=== PATIENT | female | born 1960 | race Caucasian/White ===

== ENCOUNTER → 2016-07-06 | Outpatient (REF) | payer MEDICARE, MEDICAID ==
[2016-07-08 00:06] LABS: BENZODIAZEPINES, URINE SCREEN Negative ng/mL (Cutoff=200); METHADONE, URINE SCREEN Negative ng/mL (Cutoff=300); pH, URINE 5.8 (4.5-8.9)
== END ==
LOC: M SFHCPLAZ 11:34
PROVIDERS: ATTEND Family Medicine
DX: R32 Unspecified urinary incontinence (principal); Z51.81 Encounter for therapeutic drug level monitoring; Z79.899 Other long term (current) drug therapy
CPT/HCPCS: 80307; 81001; 87086; G0463

== ENCOUNTER → 2016-08-23 | Outpatient (REF) | payer MEDICARE ==
[2016-08-23 14:02] LABS: ALBUMIN 3.6 GM/DL (3.2-5.2); ALBUMIN/GLOBULIN RATIO 1.06 (1.00-1.93); ALKALINE PHOSPHATASE 146 U/L (45-117); ALT/SGPT 44 U/L (12-78); ANION GAP 9 MEQ/L (8-16); AST/SGOT 23 U/L (15-37); BILIRUBIN,TOTAL 0.3 MG/DL (0.2-1.0); BLOOD UREA NITROGEN 20 MG/DL (7-18); CALCIUM LEVEL 9.2 MG/DL (8.5-10.1); CARBON DIOXIDE LEVEL 29 MEQ/L (21-32); CHLORIDE LEVEL 103 MEQ/L (98-107); CHOLESTEROL LEVEL 314 MG/DL (<200); CREATININE FOR GFR 0.84 MG/DL (0.55-1.02); GLOMERULAR FILTRATION RATE > 60.0 (>51); GLUCOSE, FASTING 293 MG/DL (70-105); POTASSIUM SERUM 4.4 MEQ/L (3.5-5.1); SODIUM LEVEL 141 MEQ/L (136-145); TRIGLYCERIDES LEVEL 358 MG/DL (<150)
== END ==
LOC: M SFHCPLAZ 11:25
PROVIDERS: ATTEND Family Medicine
DX: E11.42 Type 2 diabetes mellitus with diabetic polyneuropathy (principal)
CPT/HCPCS: 80053; 80061; 82043; 83036; G0463

== ENCOUNTER → 2016-10-01 | Outpatient (REF) | payer MEDICARE | LOC: M SFHCPLAZ 16:59 | PROVIDERS: ATTEND Family Medicine | DX: L98.9 Disorder of the skin and subcutaneous tissue, unspecified (principal); F31.9 Bipolar disorder, unspecified; F41.9 Anxiety disorder, unspecified; F60.3 Borderline personality disorder; Z65.8 Other specified problems related to psychosocial circumstances ==

== ENCOUNTER → 2016-10-04 | Outpatient (CLI) | payer MEDICARE ==
--- NOTE | 2016-10-04 11:32 | REP ---
Clinical: Spondylosis. Technique: AP, lateral, bilateral oblique, flexion/extension and open-mouth views of the cervical spine. Findings: Straightening of normal lordosis is nonspecific. There is no evidence for subluxation or fracture / compression injury. Advanced degenerative changes include osteophytosis, endplate sclerosis/disc space narrowing and hypertrophic changes to the uncovertebral processes causing associated foraminal narrowing. Findings are most notably involving the C4-5, C5-6, C6-7 levels. Open mouth view demonstrates normal C1-C2 articulation and odontoid process. Impression: Advanced multilevel degenerative changes. Signed by Toney Miranda MD 10/04/2016 11:23 A
--- NOTE | 2016-10-04 11:35 | REP ---
Clinical: Spondylosis. Technique: AP, lateral, bilateral oblique, flexion/extension and coned-down views of the lumbosacral spine. Findings: Advanced multilevel degenerative disc osteophyte complexes are noted. Findings include osteophytosis, endplate sclerosis/irregularity and disc space narrowing along with hypertrophic facet changes and are most pronounced at the L5-S1, L1-2, and L3-4 levels. Alignment is maintained. There is no acute fracture / compression injury or subluxation. Foraminal narrowing at the L5-S1 level is suggested. Impression: Advanced multilevel degenerative changes. No acute fracture / compression injury or subluxation. Signed by Toney Miranda MD 10/04/2016 11:26 A
== END ==
LOC: M SMT 10:31
PROVIDERS: ATTEND Neurological Surgery
DX: M47.892 Other spondylosis, cervical region (principal); M50.30 Other cervical disc degeneration, unspecified cervical region; M47.896 Other spondylosis, lumbar region

== ENCOUNTER → 2016-10-17 | Outpatient (REF) | payer MEDICARE | LOC: M SFHCPLAZ 13:12 | PROVIDERS: ATTEND Family Medicine | DX: J02.9 Acute pharyngitis, unspecified (principal) ==

== ENCOUNTER → 2016-10-19 | Outpatient (REF) | payer MEDICARE | LOC: M LAB REF 16:36 | PROVIDERS: ATTEND Neurological Surgery | DX: Z01.818 Encounter for other preprocedural examination (principal) ==

== ENCOUNTER → 2016-12-14 | Outpatient (REF) | payer MEDICARE, MEDICAID ==
[2016-12-14 13:13] LABS: ANION GAP 9 MEQ/L (8-16); BLOOD UREA NITROGEN 18 MG/DL (7-18); CALCIUM LEVEL 9.3 MG/DL (8.5-10.1); CARBON DIOXIDE LEVEL 29 MEQ/L (21-32); CHLORIDE LEVEL 104 MEQ/L (98-107); CREATININE FOR GFR 0.72 MG/DL (0.55-1.02); GLOMERULAR FILTRATION RATE > 60.0 (>51); GLUCOSE, FASTING 169 MG/DL (70-105); POTASSIUM SERUM 4.2 MEQ/L (3.5-5.1); SODIUM LEVEL 142 MEQ/L (136-145)
== END ==
LOC: M SFHCPLAZ 10:31
PROVIDERS: ATTEND Family Medicine
DX: E11.42 Type 2 diabetes mellitus with diabetic polyneuropathy (principal); I10 Essential (primary) hypertension; F41.9 Anxiety disorder, unspecified; F31.9 Bipolar disorder, unspecified; F60.3 Borderline personality disorder; Z65.8 Other specified problems related to psychosocial circumstances
CPT/HCPCS: 36415; 80048; 83036; 90834; G0463

== ENCOUNTER → 2017-01-02 | Outpatient (CLI) | payer MEDICARE ==
--- NOTE | 2017-01-02 12:28 | REPMRS ---
Patient History The patient states she had a clinical breast exam in 12/2016. Family history of breast cancer in mother at age 76 and ovarian cancer in niece at age 26. Digital Woman Screen Mammo: January 02, 2017 - Exam #: [id number] Bilateral CC and MLO view(s) were taken. Technologist: Thalia Shelley, Technologist FINDINGS: The breast tissue is heterogeneously dense. This may lower the sensitivity of mammography. There is no evidence of cancer on this mammogram. ASSESSMENT: BI-RADS/ACR category 2 mammogram. Benign finding(s). Recommendation Routine screening mammogram of both breasts in 1 year (for women over age 40). This mammogram was interpreted with the aid of an FDA-approved computer-aided dectection system. Electronically Signed By: Jerrell Barreto MD 01/02/17 2662
== END ==
LOC: M WHC 11:27
PROVIDERS: ATTEND Family Medicine
DX: Z12.31 Encounter for screening mammogram for malignant neoplasm of breast (principal); Z80.3 Family history of malignant neoplasm of breast; R92.8 Other abnormal and inconclusive findings on diagnostic imaging of breast

== ENCOUNTER → 2017-01-02 | Outpatient (CLI) | payer MEDICARE, MEDICAID ==
--- NOTE | 2017-01-02 14:59 | REP ---
CAROTID ULTRASOUND: Real-time ultrasound evaluation and duplex Doppler interrogation of the extracranial carotid vasculature is performed. There is mild plaquing and narrowing in both carotid bulbs extending into the internal and external carotid arteries. Luminal narrowing is less than 50%. There is no evidence of hemodynamically significant stenosis of either internal carotid artery. Normal flow velocities are seen. The vertebral arteries demonstrate normal direction of flow. RIGHT LEFT Peak systolic velocity ICA 62.8 cm/s 64.3 cm/s End diastolic velocity ICA 28.1 cm/s 20.9 cm/s Peak systolic velocity CCA 77.4 cm/s 93.9 cm/s Peak systolic velocity ECA 76.2 cm/s 70.7 cm/s ICA/CCA ratio 0.81 0.68 IMPRESSION: Bilateral luminal narrowing of the internal carotid arteries less than 50%. No evidence of hemodynamically significant stenosis. Incidental note is made of a few small nodules bilaterally in the thyroid, with calcifications in the right thyroid as well. Signed by Jerrell Barreto MD 01/02/2017 02:51 P
== END ==
LOC: M RAD 13:24
PROVIDERS: ATTEND Family Medicine
DX: I65.22 Occlusion and stenosis of left carotid artery (principal); Z12.31 Encounter for screening mammogram for malignant neoplasm of breast; Z80.3 Family history of malignant neoplasm of breast; R92.8 Other abnormal and inconclusive findings on diagnostic imaging of breast
CPT/HCPCS: 93880; G0202

== ENCOUNTER → 2017-02-01 | Outpatient (REF) | payer MEDICARE ==
[2017-02-01 16:25] LABS: FREE T4 0.96 NG/DL (0.76-1.46)
== END ==
LOC: M SFHCPLAZ 15:05
PROVIDERS: ATTEND Family Medicine
DX: E04.1 Nontoxic single thyroid nodule (principal)
CPT/HCPCS: 84439; 84443; G0463

== ENCOUNTER → 2017-02-06 | Outpatient (CLI) | payer MEDICARE, MEDICAID ==
--- NOTE | 2017-02-06 15:25 | REP ---
HISTORY: Thyroid nodule. COMPARISON: None. The right lobe of the thyroid gland measures 5.6 x 3.1 x 1.9 cm and the left lobe measures 5.1 x 1.9 x 1.9 cm. The cyst measures 6 mm. In the right lobe of the thyroid gland there is an 8 mm size solid nodule with echogenic foci within it consistent with calcific deposition. In the left lobe of the thyroid gland there are three nodules, two are too small for ultrasonographic characterization and measure a millimeter or less. The largest measures 6 mm in its greatest dimension and is solid. IMPRESSION: Findings as described above. Signed by Igor Reagan DO 02/06/2017 03:46 P
== END ==
LOC: M RAD 11:09
PROVIDERS: ATTEND Family Medicine
DX: E04.9 Nontoxic goiter, unspecified (principal)

== ENCOUNTER 2017-06-18 14:46 | Emergency (ER) | payer MEDICARE, MEDICAID ==
[2017-06-18] MEDS: CYCLOBENZAPRINE 10 MG TAB PO (18:29)
[2017-06-18] MEDS: PERCOCET 5MG/325MG TAB PO (18:29)
[2017-06-18] MEDS: KETOROLAC 60 MG/2 ML VIAL (J1885) IM (18:30)
== END 2017-06-18 21:07 | disposition home or self-care (01) ==
LOC: M ED 14:46
DX: M51.36 Other intervertebral disc degeneration, lumbar region (principal); I10 Essential (primary) hypertension; F41.9 Anxiety disorder, unspecified; E78.5 Hyperlipidemia, unspecified; M21.371 Foot drop, right foot; Z79.899 Other long term (current) drug therapy; Z79.84 Long term (current) use of oral hypoglycemic drugs; Z88.5 Allergy status to narcotic agent
CPT/HCPCS: J1885

== ENCOUNTER → 2017-06-24 | Outpatient (REF) | payer MEDICARE ==
[2017-06-24 18:55] LABS: ANION GAP 7 MEQ/L (8-16); BLOOD UREA NITROGEN 18 MG/DL (7-18); CALCIUM LEVEL 9.2 MG/DL (8.5-10.1); CARBON DIOXIDE LEVEL 32 MEQ/L (21-32); CHLORIDE LEVEL 100 MEQ/L (98-107); CREATININE FOR GFR 0.81 MG/DL (0.55-1.30); GLOMERULAR FILTRATION RATE > 60.0 (>51); GLUCOSE, FASTING 232 MG/DL (70-100); POTASSIUM SERUM 4.3 MEQ/L (3.5-5.1); SODIUM LEVEL 139 MEQ/L (136-145)
[2017-06-24 20:32] LABS: ESTIMATED AVERAGE GLUCOSE 235 MG/DL (60-110); HEMOGLOBIN A1c 9.8 %
== END ==
LOC: M SFHCPLAZ 16:02
DX: E11.42 Type 2 diabetes mellitus with diabetic polyneuropathy (principal); I10 Essential (primary) hypertension
CPT/HCPCS: 83036

== ENCOUNTER → 2017-09-12 | Outpatient (CLI) | payer MEDICARE | LOC: M WHC 11:19 | DX: E04.1 Nontoxic single thyroid nodule (principal); F41.0 Panic disorder [episodic paroxysmal anxiety]; F60.2 Antisocial personality disorder; F31.9 Bipolar disorder, unspecified; G47.00 Insomnia, unspecified | CPT/HCPCS: 76536 ==

== ENCOUNTER 2017-09-20 18:34 | Emergency (ER) | payer MEDICARE ==
[2017-09-20] MEDS: ONDANSETRON 4MG/2ML VIAL (J2405) IV (19:36)
[2017-09-20] MEDS: NS 1,000 ML IV (19:36)
[2017-09-20] MEDS: MORPHINE 4 MG/ML 1ML VIAL/SYRINGE (J2270) IV (19:36)
[2017-09-20 19:39] LABS: BASO % 0.3 % (0.0-1.0); EOS # 0.1 10^3/uL (0.0-0.50); EOS % 1.7 % (0.0-3.0); HEMATOCRIT 38.5 % (36.0-47.0); HEMOGLOBIN 12.8 g/dl (12.0-15.5); IMMATURE GRANULOCYTE % 0.5 % (0-3.0); LYMPH # 2.3 10^3/uL (1.5-4.5); LYMPH % 28.9 % (24.0-44.0); MEAN CORPUSCULAR HEMOGLOBIN 30.2 pg (27.0-33.0); MEAN CORPUSCULAR HGB CONC 33.2 g/dl (32.0-36.5); MEAN CORPUSCULAR VOLUME 90.8 fl (80.0-96.0); MONO # 0.5 10^3/uL (0.0-0.8); MONO % 6.9 % (0.0-5.0); NEUTROPHILS # 4.9 10^3/uL (1.8-7.7); NEUTROPHILS % 61.7 % (36.0-66.0); PLATELET COUNT, AUTOMATED 254 10^3/uL (150-450); RED BLOOD COUNT 4.24 10^6/uL (4.00-5.40); RED CELL DISTRIBUTION WIDTH 12.7 % (11.5-14.5); WHITE BLOOD COUNT 7.9 10^3/uL (4.0-10.0)
[2017-09-20 19:41] LABS: CONTROL LINE UCG INT CTR LINE PRESENT; URINE PREG TEST NEGATIVE (NEGATIVE)
[2017-09-20 19:42] LABS: KETONE, URINE AUTO RFX NEGATIVE (NEGATIVE); LEUKOCYTE ESTERASE UR AUTO RFX NEGATIVE (NEGATIVE); NITRITE, URINE AUTO RFX NEGATIVE (NEGATIVE); RBC, URINE AUTO RFX 0 /HPF (0-3); SPECIFIC GRAVITY UR AUTO RFX 1.026 (1.002-1.035); SQUAM EPITHELIAL CELL UR AURFX 0 /HPF (0-6); WBC, URINE AUTO RFX 1 /HPF (0-3)
[2017-09-20 19:50] LABS: INR 0.84; PROTHROMBIN TIME 11.5 SECONDS (12.4-14.5)
[2017-09-20 20:10] LABS: LACTIC ACID SEPSIS PROTOCOL 1.4 MMOL/L (0.4-2.0)
[2017-09-20 20:12] LABS: ALBUMIN 3.3 GM/DL (3.2-5.2); ALBUMIN/GLOBULIN RATIO 0.83 (1.00-1.93); ALKALINE PHOSPHATASE 218 U/L (45-117); ALT/SGPT 41 U/L (12-78); AMYLASE 17 U/L (25-115); ANION GAP 7 MEQ/L (8-16); AST/SGOT 18 U/L (7-37); BILIRUBIN,DIRECT < 0.1 MG/DL (0.0-0.2); BILIRUBIN,TOTAL 0.3 MG/DL (0.2-1.0); BLOOD UREA NITROGEN 16 MG/DL (7-18); CALCIUM LEVEL 8.6 MG/DL (8.5-10.1); CARBON DIOXIDE LEVEL 28 MEQ/L (21-32); CHLORIDE LEVEL 105 MEQ/L (98-107); CK-MB VALUE MASS 2.3 NG/ML (<3.6); CPK CREATINE PHOSPHOKINASE 90 U/L (26-192); CREATININE FOR GFR 0.93 MG/DL (0.55-1.30); GLOMERULAR FILTRATION RATE > 60.0 (>51); GLUCOSE, FASTING 348 MG/DL (70-100); LIPASE 94 U/L (73-393); MB/CK RELATIVE INDEX 2.55 (< OR =4); POTASSIUM SERUM 3.9 MEQ/L (3.5-5.1); SODIUM LEVEL 140 MEQ/L (136-145); TOTAL PROTEIN 7.3 GM/DL (6.4-8.2); TROPONIN I < 0.02 NG/ML (< 0.10)
[2017-09-20] MEDS: metFORMIN (GLUCOPHAGE) 1000 MG TABLET PO (20:30)
== END 2017-09-20 20:48 | disposition home or self-care (01) ==
LOC: M ED 18:34
DX: K80.20 Calculus of gallbladder without cholecystitis without obstruction (principal); E11.9 Type 2 diabetes mellitus without complications; I10 Essential (primary) hypertension; E03.9 Hypothyroidism, unspecified; F32.9 Major depressive disorder, single episode, unspecified; F31.9 Bipolar disorder, unspecified; Z79.84 Long term (current) use of oral hypoglycemic drugs; Z79.899 Other long term (current) drug therapy; Z88.5 Allergy status to narcotic agent
CPT/HCPCS: J2270

== ENCOUNTER → 2017-09-30 | Outpatient (REF) | payer MEDICARE ==
[2017-09-30 11:48] LABS: ESTIMATED AVERAGE GLUCOSE 177 MG/DL (60-110); HEMOGLOBIN A1c 7.8 %
[2017-09-30 12:27] LABS: MALB URINE SIEMENS 27.2 MG/L; MAU/CREAT RATIO 25.6 MCG/MG (0.0-30.0)
== END ==
LOC: M SFHCPLAZ 08:08
DX: E11.42 Type 2 diabetes mellitus with diabetic polyneuropathy (principal)
CPT/HCPCS: 83036

== ENCOUNTER → 2017-10-16 | Outpatient (REF) | payer MEDICARE ==
[2017-10-16 16:17] LABS: ANION GAP 8 MEQ/L (8-16); BLOOD UREA NITROGEN 24 MG/DL (7-18); CALCIUM LEVEL 9.8 MG/DL (8.5-10.1); CARBON DIOXIDE LEVEL 29 MEQ/L (21-32); CHLORIDE LEVEL 103 MEQ/L (98-107); CREATININE FOR GFR 1.01 MG/DL (0.55-1.30); GLOMERULAR FILTRATION RATE > 60.0 (>51); GLUCOSE, FASTING 146 MG/DL (70-100); POTASSIUM SERUM 4.5 MEQ/L (3.5-5.1); SODIUM LEVEL 140 MEQ/L (136-145)
== END ==
LOC: M SFHCPLAZ 11:31
DX: I10 Essential (primary) hypertension (principal)
CPT/HCPCS: 80048

== ENCOUNTER 2017-11-03 19:06 | Emergency (ER) | payer MEDICARE ==
[2017-11-03] MEDS: CLINDAMYCIN 150 MG CAP PO (20:02)
[2017-11-03] MEDS: NORCO 5/325MG TABLET (BULK FOR ED) PO (20:02)
== END 2017-11-03 20:28 | disposition home or self-care (01) ==
LOC: M ED 19:06
DX: L02.416 Cutaneous abscess of left lower limb (principal); S80.861A Insect bite (nonvenomous), right lower leg, initial encounter; S80.862A Insect bite (nonvenomous), left lower leg, initial encounter; X58.XXXA Exposure to other specified factors, initial encounter; Y92.89 Other specified places as the place of occurrence of the external cause; I10 Essential (primary) hypertension; E78.70 Disorder of bile acid and cholesterol metabolism, unspecified; E11.9 Type 2 diabetes mellitus without complications; E07.9 Disorder of thyroid, unspecified; Z98.890 Other specified postprocedural states; Z88.5 Allergy status to narcotic agent; Z79.899 Other long term (current) drug therapy; Z79.4 Long term (current) use of insulin
CPT/HCPCS: 87186

== ENCOUNTER 2017-11-11 11:47 | Emergency (ER) | payer MEDICARE ==
[2017-11-11] MEDS: MORPHINE 4 MG/ML 1ML VIAL/SYRINGE (J2270) IV ×2 (12:29→14:13)
[2017-11-11] MEDS: ONDANSETRON 4MG/2ML VIAL (J2405) IV (12:29)
[2017-11-11] MEDS: NS 1,000 ML IV (12:29)
[2017-11-11 12:31] LABS: BASO % 0.4 % (0.0-1.0); EOS # 0.2 10^3/uL (0.0-0.50); EOS % 1.6 % (0.0-3.0); HEMATOCRIT 38.4 % (36.0-47.0); HEMOGLOBIN 12.7 g/dl (12.0-15.5); IMMATURE GRANULOCYTE % 0.5 % (0-3.0); LYMPH # 2.4 10^3/uL (1.5-4.5); LYMPH % 20.7 % (24.0-44.0); MEAN CORPUSCULAR HGB CONC 33.1 g/dl (32.0-36.5); MEAN CORPUSCULAR VOLUME 90.8 fl (80.0-96.0); MONO # 0.7 10^3/uL (0.0-0.8); MONO % 5.7 % (0.0-5.0); NEUTROPHILS # 8.1 10^3/uL (1.8-7.7); NEUTROPHILS % 71.1 % (36.0-66.0); PLATELET COUNT, AUTOMATED 273 10^3/uL (150-450); RED BLOOD COUNT 4.23 10^6/uL (4.00-5.40); RED CELL DISTRIBUTION WIDTH 12.3 % (11.5-14.5); WHITE BLOOD COUNT 11.4 10^3/uL (4.0-10.0)
[2017-11-11] MEDS: GASTROGRAFIN SOLUTION 30ML PO ×2 (12:50)
[2017-11-11 13:12] LABS: ALBUMIN 3.1 GM/DL (3.2-5.2); ALBUMIN/GLOBULIN RATIO 0.76 (1.00-1.93); ALKALINE PHOSPHATASE 133 U/L (45-117); ALT/SGPT 34 U/L (12-78); ANION GAP 5 MEQ/L (8-16); AST/SGOT 18 U/L (7-37); BILIRUBIN,DIRECT < 0.1 MG/DL (0.0-0.2); BILIRUBIN,TOTAL 0.2 MG/DL (0.2-1.0); BLOOD UREA NITROGEN 24 MG/DL (7-18); CALCIUM LEVEL 9.5 MG/DL (8.5-10.1); CARBON DIOXIDE LEVEL 29 MEQ/L (21-32); CHLORIDE LEVEL 111 MEQ/L (98-107); CREATININE FOR GFR 0.97 MG/DL (0.55-1.30); GLOMERULAR FILTRATION RATE > 60.0 (>51); GLUCOSE, FASTING 146 MG/DL (70-100); LIPASE 85 U/L (73-393); POTASSIUM SERUM 4.5 MEQ/L (3.5-5.1); SODIUM LEVEL 145 MEQ/L (136-145); TOTAL PROTEIN 7.2 GM/DL (6.4-8.2)
[2017-11-11] MEDS ORDERED: ISOVUE-370 76% 100ML VIAL (Q9967) As Ordered (14:12)
== END 2017-11-11 16:39 | disposition home or self-care (01) ==
LOC: M ED 11:47
DX: R10.9 Unspecified abdominal pain (principal); E11.9 Type 2 diabetes mellitus without complications; I10 Essential (primary) hypertension; E78.5 Hyperlipidemia, unspecified; F31.9 Bipolar disorder, unspecified; F60.3 Borderline personality disorder; Z98.890 Other specified postprocedural states; Z88.5 Allergy status to narcotic agent; Z90.49 Acquired absence of other specified parts of digestive tract; Z79.2 Long term (current) use of antibiotics; Z79.899 Other long term (current) drug therapy; Z79.4 Long term (current) use of insulin; Z86.69 Personal history of other diseases of the nervous system and sense organs
CPT/HCPCS: J2270

== ENCOUNTER → 2018-04-22 | Outpatient (CLI) | payer MEDICARE ==
[2018-04-22 09:23] LABS: BASO % 0.4 % (0.0-1.0); EOS # 0.2 10^3/uL (0.0-0.50); EOS % 2.1 % (0.0-3.0); HEMATOCRIT 39.1 % (36.0-47.0); HEMOGLOBIN 13.3 g/dl (12.0-15.5); IMMATURE GRANULOCYTE % 0.4 % (0-3.0); LYMPH # 2.3 10^3/uL (1.5-4.5); LYMPH % 29.8 % (24.0-44.0); MEAN CORPUSCULAR HEMOGLOBIN 30.6 pg (27.0-33.0); MEAN CORPUSCULAR VOLUME 89.9 fl (80.0-96.0); MONO # 0.5 10^3/uL (0.0-0.8); MONO % 5.8 % (0.0-5.0); NEUTROPHILS # 4.8 10^3/uL (1.8-7.7); NEUTROPHILS % 61.5 % (36.0-66.0); PLATELET COUNT, AUTOMATED 268 10^3/uL (150-450); RED BLOOD COUNT 4.35 10^6/uL (4.00-5.40); RED CELL DISTRIBUTION WIDTH 11.7 % (11.5-14.5); WHITE BLOOD COUNT 7.7 10^3/uL (4.0-10.0)
[2018-04-22 09:58] LABS: ALBUMIN 3.3 GM/DL (3.2-5.2); ALKALINE PHOSPHATASE 133 U/L (45-117); ALT/SGPT 23 U/L (12-78); ANION GAP 6 MEQ/L (8-16); AST/SGOT 10 U/L (7-37); BILIRUBIN,TOTAL 0.2 MG/DL (0.2-1.0); BLOOD UREA NITROGEN 21 MG/DL (7-18); CALCIUM LEVEL 9.2 MG/DL (8.5-10.1); CARBON DIOXIDE LEVEL 30 MEQ/L (21-32); CHLORIDE LEVEL 105 MEQ/L (98-107); CHOLESTEROL LEVEL 247 MG/DL (<200); CREATININE FOR GFR 0.72 MG/DL (0.55-1.30); FREE T4 0.88 NG/DL (0.76-1.46); GLOMERULAR FILTRATION RATE > 60.0 (>51); GLUCOSE, FASTING 201 MG/DL (70-100); HDL CHOLESTEROL 42 MG/DL (>40); LDL CHOLESTEROL 156 MG/DL (<100); NON-HDL-C 205 MG/DL; POTASSIUM SERUM 4.5 MEQ/L (3.5-5.1); SODIUM LEVEL 141 MEQ/L (136-145); TOTAL PROTEIN 6.6 GM/DL (6.4-8.2); TRIGLYCERIDES LEVEL 246 MG/DL (<150)
[2018-04-22 10:00] LABS: TOTAL 25(OH) VITAMIN D 16.1 NG/ML (30.0-100.0); VITAMIN B12 LEVEL 204 PG/ML (247-911)
[2018-04-22 10:58] LABS: ESTIMATED AVERAGE GLUCOSE 206 MG/DL (60-110); HEMOGLOBIN A1c 8.8 %
== END ==
LOC: M LAB 08:18
DX: R53.83 Other fatigue (principal); E78.2 Mixed hyperlipidemia; E11.9 Type 2 diabetes mellitus without complications; I10 Essential (primary) hypertension
CPT/HCPCS: 84443

== ENCOUNTER 2018-08-15 07:18 | Observation (INO) | payer MEDICARE ==
[~2018-08-15] VITALS: Ht 165.1 cm; Wt 104.9 kg
[~2018-08-15 07:18] MED LIST: AMLO10TA5 PO; ATIV1TAB10; CLEO300C2 PO; CLON0.5T8 PO; CYCL10TA PO; HYDR-3713; HYDR25TAB PO; LAMI1TAB7; LAMI1TAB9 PO; LISI40TA PO; METF10004 PO; NORC1TAB7 PO; PERC5TAB12 PO; PRAZ1CAP PO; PROZ20CA11 PO; SERO200T PO; TOUJ1.2I; TOUJ1.2I SC; WELLTAB38; ZOFR4TAB14 PO
[2018-08-15] MEDS ORDERED: ONDANSETRON 4MG/2ML VIAL (J2405) As Ordered ONE (07:36)
[2018-08-15] MEDS ORDERED: ONDANSETRON 4MG/2ML VIAL (J2405) IV ONE ×2 (07:45→10:45)
[2018-08-15] MEDS ORDERED: KETOROLAC 30 MG/ML VIAL (J1885) IV ONE (07:45)
[2018-08-15] MEDS ORDERED: NS 1,000 ML IV ONE (08:00)
[2018-08-15 08:09] LABS: BASO % 0.1 % (0.0-1.0); EOS # 0.1 10^3/uL (0.0-0.50); EOS % 0.9 % (0.0-3.0); HEMATOCRIT 43.6 % (36.0-47.0); HEMOGLOBIN 14.8 g/dl (12.0-15.5); LYMPH # 0.8 10^3/uL (1.5-4.5); LYMPH % 5.7 % (24.0-44.0); MEAN CORPUSCULAR HEMOGLOBIN 30.9 pg (27.0-33.0); MEAN CORPUSCULAR HGB CONC 33.9 g/dl (32.0-36.5); MONO # 0.7 10^3/uL (0.0-0.8); MONO % 5.2 % (0.0-5.0); NEUTROPHILS # 12.3 10^3/uL (1.8-7.7); NEUTROPHILS % 87.7 % (36.0-66.0); PLATELET COUNT, AUTOMATED 331 10^3/uL (150-450); RED BLOOD COUNT 4.79 10^6/uL (4.00-5.40); WHITE BLOOD COUNT 14.1 10^3/uL (4.0-10.0)
[2018-08-15 08:28] LABS: ALBUMIN 3.4 GM/DL (3.2-5.2); ALT/SGPT 29 U/L (12-78); BILIRUBIN,DIRECT 0.1 MG/DL (0.0-0.2); BILIRUBIN,TOTAL 0.4 MG/DL (0.2-1.0); BLOOD UREA NITROGEN 24 MG/DL (7-18); CALCIUM LEVEL 8.6 MG/DL (8.5-10.1); CARBON DIOXIDE LEVEL 27 MEQ/L (21-32); CHLORIDE LEVEL 106 MEQ/L (98-107); CPK CREATINE PHOSPHOKINASE 93 U/L (26-192); CREATININE FOR GFR 0.83 MG/DL (0.55-1.30); GLOMERULAR FILTRATION RATE > 60.0 (>51); GLUCOSE, FASTING 264 MG/DL (70-100); LIPASE 100 U/L (73-393); POTASSIUM SERUM 4.6 MEQ/L (3.5-5.1); SODIUM LEVEL 140 MEQ/L (136-145); TOTAL PROTEIN 6.4 GM/DL (6.4-8.2); TROPONIN I < 0.02 NG/ML (< 0.10)
[2018-08-15] MEDS ORDERED: TIZANIDINE (09:24)
--- NOTE | 2018-08-15 10:35 | REP ---
RIGHT UPPER QUADRANT ULTRASOUND: Real-time sonographic evaluation of the right upper quadrant performed. Gallbladder has been surgically removed. There is no significant biliary dilatation, common bile duct measuring 8 mm. There is no free fluid. Somewhat increased echotexture of the liver suggest some degree of fibrofatty infiltration. Liver is essentially at the upper limits of normal in size at 17 cm in length in the mid clavicular line. No liver or pancreatic mass is seen, pancreas is not optimally visualized due to patient body habitus and bowel gas. Right kidney demonstrates no hydronephrosis with normal size 10.6 cm in length. IMPRESSION: Status post cholecystectomy. No significant biliary dilatation or free fluid. There is likely some degree of fibrofatty infiltration of the liver. Electronically Signed by Jerrell Barreto MD 08/15/2018 04:15 P
[2018-08-15] MEDS ORDERED: ISOVUE-370 76% 100ML VIAL (Q9967) As Ordered ONE (10:43)
[2018-08-15 11:35] LABS: HEMOGLOBIN A1c 7.7 %
--- NOTE | 2018-08-15 11:44 | REP ---
CT ABDOMEN AND PELVIS WITH IV CONTRAST: TECHNIQUE: Axial contrast enhanced images from the lung bases to the pubic symphysis using 100 mL Isovue 370 intravenous contrast material with multiplanar reformations. Visualized lung bases demonstrates no infiltrate. The liver demonstrates no mass. Patient has had a prior cholecystectomy. There is not significant intrahepatic or extrahepatic biliary dilatation. The spleen, adrenals, pancreas and kidneys are unremarkable. There is no hydronephrosis. There is mild atherosclerotic calcification of the abdominal aorta without aneurysm. There is no adenopathy. There is no free air or free fluid. I see no bowel wall thickening. The appendix is normal. No mass is seen in the abdominal wall. No pelvic mass is seen. The urinary bladder is not well distended and not well evaluated. There are small inguinal hernias containing fat. IMPRESSION: No acute abnormalities. Patient is status post cholecystectomy. No evidence of mass, adenopathy or free fluid. There are small inguinal hernias containing fat. Electronically Signed by Jerrell Barreto MD 08/15/2018 04:16 P
[2018-08-15 11:50] LABS: APPEARANCE, URINE HAZY (CLEAR); BACTERIA, URINE AUTO NEGATIVE (NEGATIVE); BILIRUBIN, URINE AUTO NEGATIVE (NEGATIVE); BLOOD, URINE BLOOD NEGATIVE (NEGATIVE); COLOR, URINE YELLOW (YELLOW); GLUCOSE, URINE (UA) AUTO 1+ mg/dL (NEGATIVE); KETONE, URINE AUTO NEGATIVE (NEGATIVE); LEUKOCYTE ESTERASE, URINE AUTO NEGATIVE (NEGATIVE); MUCUS, URINE SMALL (NEGATIVE); NITRITE, URINE AUTO NEGATIVE (NEGATIVE); PROTEIN, URINE AUTO NEGATIVE (NEGATIVE); RBC, URINE AUTO 3 /HPF (0-3); SPECIFIC GRAVITY URINE AUTO 1.026 (1.002-1.035); SQUAMOUS EPITHELIAL CELL UR AU 1 /HPF (0-6); UROBILINOGEN, URINE AUTO 0.2 mg/dL (0.0-2.0); WBC, URINE AUTO 2 /HPF (0-3)
[2018-08-15] MEDS ORDERED: TIZA4TAB4 PO (11:59)
[2018-08-15] MEDS ORDERED: FLUO40CA PO (11:59)
[2018-08-15] MEDS ORDERED: METF-839 PO (11:59)
[2018-08-15] MEDS ORDERED: LAMO100T PO ×2 (11:59)
[2018-08-15] MEDS ORDERED: PROMETHAZINE INJ 25 MG/ML VIAL (J2550) IV ONE (12:00)
[2018-08-15] MEDS ORDERED: METOCLOPRAMIDE INJ 10MG/2ML VIAL (J2765) IV PRN (12:30)
[2018-08-15] MEDS ORDERED: ACETAMINOPHEN TAB 650MG DOSE (2X325MG) PO PRN (12:30)
[2018-08-15] MEDS ORDERED: GLUCAGON FOR INJ 1 MG VIAL (J1610) SC PRN (12:30)
[2018-08-15] MEDS ORDERED: GLUCOSE 4 GM CHEW TABLET PO PRN (12:30)
[2018-08-15] MEDS ORDERED: DEXTROSE 50% 50 ML SYRINGE IV PRN (12:30)
[2018-08-15] MEDS ORDERED: MOM 30ML SUSPENSION UDC PO PRN (12:30)
--- NOTE | 2018-08-15 12:44 | HPEPDOC ---
General Date of Admission Primary Care Physician: Marina Bell I. Attending Physician: SHARON PALACIOS MD Chief Complaint The patient is a 58-year-old female admitted with a reason for visit of Abd Pain / Diarrhea / Vomiting. Source: Patient Exam Limitations: No limitations Timing/Duration: Day(s) (2 days) Severity: Severe Associated Symptoms: Nausea, Vomiting History of Present Illness This is a 58 years old white female with past medical history of diabetes mellitus, gastroparesis, hypertension, hyperlipidemia, had developed severe nausea, vomiting since last 2 days which is progressively getting worse. No chest pain, no shortness of breath, no abdominal pain Home Medications Scheduled ([facility]) 300 Unit/Ml Inj, 44 UNIT SC DAILY, (Reported) Amlodipine Besylate (Amlodipine Besylate) 10 Mg Tab, 10 MG PO DAILY, (Reported) Fluoxetine Hcl (Fluoxetine HCl) 40 Mg Cap, 40 MG PO DAILY, (Reported) Hydrochlorothiazide (Hydrochlorothiazide) 25 Mg Tab, 25 MG PO DAILY, (Reported) Lamotrigine (Lamotrigine) 100 Mg Tab, 100 MG PO QAM, (Reported) Lamotrigine (Lamotrigine) 100 Mg Tab, 200 MG PO QHS, (Reported) Lisinopril (Lisinopril) 40 Mg Tab, 40 MG PO DAILY, (Reported) Metformin Hydrochloride (Metformin Hydrochloride) 500 Mg Tab, 1,000 MG PO BID, (Reported) Quetiapine Fumerate (Seroquel) 200 Mg Tab, 200 MG PO QHS, (Reported) Scheduled PRN Tizanidine Hydrochloride (Tizanidine Hydrochloride) 4 Mg Tab, 4 MG PO TID PRN for MUSCLE SPASMS, (Reported) Allergies Coded Allergies: morphine (Verified Adverse Reaction, Mild, N/V, 08/15/18) Past Medical History Medical History Diabetes mellitus, diabetic gastroparesis, obesity, hypertension, psychiatric disorders Surgical History Inguinal hernia surgery Social History * Smoker: non-smoker Drugs: denies Review of Systems Constitutional: Reports: Fatigue Eyes: Denies: Pain, Vision change ENT: Denies: Head Aches, Ear Pain, Dysphagia Skin: Denies: Rash, Lesions, Breakdown Pulmonary: Denies: Dyspnea, Cough Cardiovascular: Denies: Chest Pain, Palpitations, Orthopnea, Paroxysmal Noc. Dyspnea, Lt Headedness Gastrointestinal: Reports: Nausea, Vomiting Genitourinary: Denies: Dysuria, Frequency, Incontinence, Retention Hematologic: Denies: Bruising, Bleeding Excessively Musculoskeletal: Denies: Neck Pain, Back Pain, Joint Pain, Muscle Pain, Spasms Neurological: Denies: Weakness, Numbness, Change in speech, Confusion Psych: Reports: Mood Normal; Denies: Depression, Memory Issues Physical Examination General Exam: Positive: Alert, Cooperative Eye Exam: Positive: PERRLA, Conjunctiva & lids normal ENT Exam: Positive: Atraumatic, Mucous membr. moist/pink, Pharynx Normal Neck Exam: Positive: thyromegaly Chest Exam: Positive: Clear to auscultation, Normal air movement Heart Exam: Positive: Rate Normal, Normal S1, Normal S2 Telemetry: Positive: No significant arrhythmia Abdomen Exam: Positive: Normal bowel sounds, Soft Extremity Exam: Positive: Tenderness (mild tenderness at the epigastric area) Skin Exam: Positive: Nl turgor and temperature; Negative: Breakdown, Lesion Neuro Exam: Positive: Normal Gait, Normal Speech, Cranial Nerves 3-12 NL, Reflexes 2+ Psych Exam: Positive: Mental status NL, Mood NL, Oriented x 3 Vital Signs Vital Signs Date Time Temp Pulse Resp B/P (MAP) Pulse Ox O2 Delivery O2 Flow Rate FiO2 08/15/18 08:17 08/15/18 07:19 96.5 132 18 98 Room Air Laboratory Data Labs 24H Laboratory Tests 2 08/15/18 07:47: Immature Granulocyte % (Auto) 0.4, White Blood Count 14.1H, Red Blood Count 4.79, Hemoglobin 14.8, Hematocrit 43.6, Mean Corpuscular Volume 91.0, Mean Corpuscular Hemoglobin 30.9, Mean Corpuscular Hemoglobin Concent 33.9, Red Cell Distribution Width 11.9, Platelet Count 331, Neutrophils (%) (Auto) 87.7H, Lymphocytes (%) (Auto) 5.7L, Monocytes (%) (Auto) 5.2H, Eosinophils (%) (Auto) 0.9, Basophils (%) (Auto) 0.1, Neutrophils # (Auto) 12.3H, Lymphocytes # (Auto) 0.8L, Monocytes # (Auto) 0.7, Eosinophils # (Auto) 0.1, Basophils # (Auto) 0.0, Nucleated Red Blood Cells % (auto) 0.0, Anion Gap 7L, Glomerular Filtration Rate > 60.0, Estimated Mean Plasma Glucose 174H, Hemoglobin A1c 7.7, Lactic Acid Level 1.5, Calcium Level 8.6, Aspartate Amino Transf (AST/SGOT) 34, Alanine Aminotransferase (ALT/SGPT) 29, Alkaline Phosphatase 143H, Total Bilirubin 0.4, Direct Bilirubin 0.1, Total Creatine Kinase 93, Creatine Kinase MB 3.0, Creatine Kinase MB Relative Index 2.80, Troponin I < 0.02, Total Protein 6.4, Albumin 3.4, Albumin/Globulin Ratio 1.13, Lipase 100 08/15/18 07:52: Bedside Glucose (Misc Panel) 265H 08/15/18 11:37: Urine Appearance HAZY, Urine Color YELLOW, Urine pH 5.0, Urine Specific [place] 1.026, Urine Protein NEGATIVE, Urine Glucose (UA) 1+H, Urine Ketones NEGATIVE, Urine Urobilinogen 0.2, Urine Bilirubin NEGATIVE, Urine Leukocyte Esterase NEGATIVE, Urine Blood NEGATIVE, Urine Nitrite NEGATIVE, Urine WBC (Auto) 2, Urine RBC (Auto) 3, Urine Hyaline Casts (Auto) 0, Urine Bacteria (Auto) NEGATIVE, Urine Squamous Epithelial Cells 1, Urine Mucus (Auto) SMALL, Urine Sperm (Auto) CBC/BMP Laboratory Tests 08/15/18 07:47 Red Blood Count 4.79, Mean Corpuscular Volume 91.0, Mean Corpuscular Hemoglobin 30.9, Mean Corpuscular Hemoglobin Concent 33.9, Red Cell Distribution Width 11.9, Neutrophils (%) (Auto) 87.7 H, Lymphocytes (%) (Auto) 5.7 L, Monocytes (%) (Auto) 5.2 H, Eosinophils (%) (Auto) 0.9, Basophils (%) (Auto) 0.1, Neutrophils # (Auto) 12.3 H, Lymphocytes # (Auto) 0.8 L, Monocytes # (Auto) 0.7, Eosinophils # (Auto) 0.1, Basophils # (Auto) 0.0 Problems (1) Intractable nausea and vomiting Status: Acute Problem Text: 58 y/o obese white female with past medical history of diabetes mellitus, hypertension, diabetic gastroparesis, presented in the ER with chief complaints of intractable nausea, vomiting, unable to keep anything down. Patient has been taking all her medication, but without any success. She decided come to ER, which she is being admitted under observation for IV hydration and control for intractable nausea, vomiting Admit to medical floor under observation Normal saline at 100 mL per hour Reglan 5 mg IV every 6 hours when necessary for nausea, vomiting Nothing by mouth except meds Hold Glucophage and calcium channel blockers Continue amlodipine Fingerstick blood sugar every 6 hours with the coloration Ambulatory work has been ordered Bowel rest with nothing by mouth Further management depends on patient's response to clinical intervention Plan / VTE VTE Prophylaxis Ordered?: Yes SHARON PALACIOS MD Aug 15, 2018 12:44
[2018-08-15] MEDS: lamoTRIgine 100MG TAB PO SCH (13:02)
[2018-08-15] MEDS: amLODIPine 10 MG TAB PO SCH (13:03)
[2018-08-15] MEDS: FLUoxetine 20 MG CAP PO SCH (13:03)
[2018-08-15] MEDS: NS 1,000 ML IV SCH ×2 (13:03→21:49)
[2018-08-15 14:15] VITALS: BP 148/69
[2018-08-15] MEDS: HumaLOG INSULIN (NovoLOG) PER UNIT SC SCH ×2 (14:43→18:00)
[2018-08-15] MEDS ORDERED: IBUPROFEN 400 MG TAB PO PRN (15:15)
[2018-08-15 17:26] LABS: INFLUENZA A AMPLIFICATION NEGATIVE (NEGATIVE); INFLUENZA B AMPLIFICATION NEGATIVE (NEGATIVE)
[2018-08-15] MEDS ORDERED: VALT1TAB PO (18:37)
--- NOTE | 2018-08-15 20:23 | ECGEPIP ---
Stationary ECG Study [facility] - ED Test Date: 2018-08-15 Pat Name: BOOKER HINTON Department: Room: - Gender: F First Aid Director: CHRISTINE : 1960 Requested By: BRENDA Klein PA-C Order Number: [id number] Reading MD: Bryant Ly Measurements Intervals [place] Rate: 106 P: 33 HI: 159 QRS: -24 QRSD: 83 T: -3 QT: 326 QTc: 434 Interpretive Statements SINUS TACHYCARDIA BORDERLINE LEFT AXIS DEVIATION Similar to tracing done 09-20-17 but with increased rate Electronically Signed On 08-15-2018 20:22:38 EDT by Bryant Ly
[2018-08-15] MEDS ORDERED: QUEtiapine FUMARATE 200 MG TAB PO SCH (21:00)
[2018-08-15] MEDS ORDERED: lamoTRIgine 100MG TAB PO SCH (21:00)
[2018-08-15] MEDS ORDERED: ENOXAPARIN 40 MG/0.4 ML SYRINGE (J1650) SC SCH (21:00)
[2018-08-15] MEDS: valACYclovir HCL 500 MG TAB PO SCH (21:48)
[2018-08-15 22:00] VITALS: BP 108/56
[2018-08-16 05:54] LABS: HEMATOCRIT 32.9 % (36.0-47.0); MEAN CORPUSCULAR HEMOGLOBIN 30.6 pg (27.0-33.0); MEAN CORPUSCULAR HGB CONC 33.4 g/dl (32.0-36.5); MEAN CORPUSCULAR VOLUME 91.6 fl (80.0-96.0); RED BLOOD COUNT 3.59 10^6/uL (4.00-5.40); WHITE BLOOD COUNT 8.1 10^3/uL (4.0-10.0)
[2018-08-16] MEDS: HumaLOG INSULIN (NovoLOG) PER UNIT SC SCH ×3 (05:57→12:44)
[2018-08-16 06:00] VITALS: BP 128/60
[2018-08-16 06:13] LABS: PLATELET COUNT, AUTOMATED 208 10^3/uL (150-450)
[2018-08-16 06:35] LABS: ALBUMIN 2.4 GM/DL (3.2-5.2); ALT/SGPT 26 U/L (12-78); BILIRUBIN,TOTAL 0.4 MG/DL (0.2-1.0); BLOOD UREA NITROGEN 27 MG/DL (7-18); CALCIUM LEVEL 7.8 MG/DL (8.5-10.1); CARBON DIOXIDE LEVEL 26 MEQ/L (21-32); CHLORIDE LEVEL 111 MEQ/L (98-107); CREATININE FOR GFR 0.82 MG/DL (0.55-1.30); GLOMERULAR FILTRATION RATE > 60.0 (>51); GLUCOSE, FASTING 118 MG/DL (70-100); MAGNESIUM LEVEL 1.4 MG/DL (1.8-2.4); POTASSIUM SERUM 3.8 MEQ/L (3.5-5.1); SODIUM LEVEL 143 MEQ/L (136-145); TOTAL PROTEIN 5.3 GM/DL (6.4-8.2)
[2018-08-16] MEDS ORDERED: PANTOPRAZOLE 40MG TAB (PROTONIX) PO SCH (09:00)
[2018-08-16] MEDS ORDERED: MAGNESIUM OXIDE 400 MG TAB (MAG-OX) PO SCH (09:00)
[2018-08-16] MEDS: valACYclovir HCL 500 MG TAB PO SCH (09:55)
[2018-08-16] MEDS: lamoTRIgine 100MG TAB PO SCH (09:55)
[2018-08-16] MEDS: NS 1,000 ML IV SCH (09:55)
[2018-08-16] MEDS: FLUoxetine 20 MG CAP PO SCH (09:55)
[2018-08-16 09:56] VITALS: BP 132/60
[2018-08-16] MEDS: amLODIPine 10 MG TAB PO SCH (09:56)
[2018-08-16 14:00] VITALS: BP 123/74
[2018-08-16] MEDS ORDERED: OMEP40CA2 PO (16:45)
--- NOTE | 2018-08-16 16:45 | DS.PDOC ---
Discharge Summary General Date of Admission Aug 15, 2018 at 12:17 Date of Discharge 08/16/18 Discharge Summary PROCEDURES PERFORMED DURING STAY: [None]. ADMITTING DIAGNOSES: 1. intractable nausea and vomiting DISCHARGE DIAGNOSES: 1. intractable nausea and vomiting COMPLICATIONS/CHIEF COMPLAINT: Intractable Nausea And Vomiting. HISTORY OF PRESENT ILLNESS: This is a 58 years old white female with past medical history of diabetes mellitus, gastroparesis, hypertension, hyperlipidemia, had developed severe nausea, vomiting since last 2 days which is progressively getting worse. No chest pain, no shortness of breath, no abdominal pain. She did say to me this morning that she noticed the urine sample that she sent was pink; however denied in colicky pain, back pain or urinary symptoms. UA is within normal limit. HOSPITAL COURSE: Patient was kept overnight for hydration and observation. She was given IVF NS and reglan as needed which resolved her symptoms. She is doing well today. no more episode of nausea and vomiting today. She requests to be discharged home. Unfortunately she did not get to be monitor with po intake. She did explain earlier that she had a medical emergency with her son, but I am not sure if that the reason she is leaving before a trial of po intake DISCHARGE MEDICATIONS: Please see below. ALLERGIES: Please see below. PHYSICAL EXAMINATION ON DISCHARGE: VITAL SIGNS: Please see below Physical exam Gen: NAD, healthy appearing , obese HEENT: normocephalic, atraumatic, no discharge from ears or nose, no oropharyngeal erythema or exudate, neck is supple, no lymphadenopathy, trachea midline CVS: RRR, normal S1n S2, no murmur, rubs, or gallops, no edema, no jvd Resp: LCTAB, no rhonchi, wheezes or crackles Abd : soft, epigastric andf left lower quadrant tenderness, normal bowel sounds, no rebound tenderness or guarding MSK: no swelling, full range of motion, strength 5/5 Neuro: AOAx3, no confusion, no focal deficit Psych: normal mood and affect, good judgment LABORATORY DATA: Please see below. IMAGING: [CT ABDOMEN AND PELVIS WITH IV CONTRAST: TECHNIQUE: Axial contrast enhanced images from the lung bases to the pubic symphysis using 100 mL Isovue 370 intravenous contrast material with multiplanar reformations. Visualized lung bases demonstrates no infiltrate. The liver demonstrates no mass. Patient has had a prior cholecystectomy. There is not significant intrahepatic or extrahepatic biliary dilatation. The spleen, adrenals, pancreas and kidneys are unremarkable. There is no hydronephrosis. There is mild atherosclerotic calcification of the abdominal aorta without aneurysm. There is no adenopathy. There is no free air or free fluid. I see no bowel wall thickening. The appendix is normal. No mass is seen in the abdominal wall. No pelvic mass is seen. The urinary bladder is not well distended and not well evaluated. There are small inguinal hernias containing fat. IMPRESSION: No acute abnormalities. Patient is status post cholecystectomy. No evidence of mass, adenopathy or free fluid. There are small inguinal hernias containing fat. Electronically Signed by Jerrell Barreto MD 08/15/2018 04:16 P DD: Jerrell Barreto MD, MD 08/15/18 1120 DT: MAGALY 08/15/18 1144 DS: WU 08/15/18 1616 08/15/18 161 [facility] NAME: BOOKER HINTON I DATE OF : 1960 AGE: 58 SEX: F REPORT #: [id number] ROOM: [facility] TECHNOLOGIST: TISHA DOCTOR: BRENDA JUSTICE PA-C Ordered for Date&Time: 08/15/18 0900 cc: [~ rep ct ivnm] Service Date&Time: 08/15/18 0956 This report is in Signed status. If this report is in a DRAFT status it has not yet been reviewed by the radiologist for accuracy. Thank you for having your radiology procedures performed at [facility] RADIOLOGY REPORT Date&Time printed: [~ rep prt dt last] [~ rep prt tm last] Page [address] [address] RADIOLOGY REPORT This report is in Signed status. If this report is in a DRAFT status it has not yet been reviewed by the radiol ogist for accuracy. Thank you for having your radiology procedures performed at [facility] RADIOLOGY REPORT Date&Time printed: [~ rep prt dt last] [~ rep prt tm last] Page 1 of 1 NAME: BOOKER HINTON I DATE OF : 1960 AGE: 58 SEX: F REPORT #: [id number] ROOM: [facility] TECHNOLOGIST: TISHA DOCTOR: BRENDA JUSTICE PA-C Ordered for Date&Time: 08/15/18 0900 cc: [~ rep ct ivnm] Service Date&Time: 08/15/18 0956 EXAMINATION REQUESTED: LIVER US REASON FOR PATIENT VISIT: INTRACTABLE NAUSEA AND VOMITING REASON FOR EXAM/COMMENT: palpable hard mass RUQ RIGHT UPPER QUADRANT ULTRASOUND: Real-time sonographic evaluation of the right upper quadrant performed. Gallbladder has been surgically removed. There is no significant biliary dilatation, common bile duct measuring 8 mm. There is no free fluid. Somewhat increased echotexture of the liver suggest some degree of fibrofatty infiltration. Liver is essentially at the upper limits of normal in size at 17 cm in length in the mid clavicular line. No liver or pancreatic mass is seen, pancreas is not optimally visualized due to patient body habitus and bowel gas. Right kidney demonstrates no hydronephrosis with normal size 10.6 cm in length. IMPRESSION: Status post cholecystectomy. No significant biliary dilatation or free fluid. There is likely some degree of fibrofatty infiltration of the liver. Electronically Signed by Jerrell Barreto MD 08/15/2018 04:15 P DD: Jerrell Barreto MD, MD 08/15/18 0955 DT: ERIKA 08/15/18 1035 DS: WU 08/15/18 1615 08/15/18 1615 [~ rep ct labl] ] PROGNOSIS: [good ] ACTIVITY: [As tolerated]. DIET: [consistent carbohydrate diet (diabetic diet) DISCHARGE PLAN: [f/u with pcp in 1-2 weeks ] DISPOSITION: IN home to self care DISCHARGE CONDITION: [Stable]. TIME SPENT ON DISCHARGE: Greater than [10] minutes. Vital Signs/I&Os Vital Signs Date Time Temp Pulse Resp B/P (MAP) Pulse Ox O2 Delivery O2 Flow Rate FiO2 08/16/18 14:00 96.6 94 18 123/74 (90) 100 08/15/18 13:01 Room Air I&O- Last 24 Hours up to 6 AM 08/16/18 06:00 Intake Total 1900 ml Balance 1900 ml Laboratory Data Labs 24H Laboratory Tests 2 08/15/18 16:44: Influenza Type A (RT-PCR) NEGATIVE, Influenza Type B (RT-PCR) NEGATIVE 08/15/18 18:08: Bedside Glucose (Misc Panel) 160H 08/16/18 00:08: Bedside Glucose (Misc Panel) 131H 08/16/18 05:37: Nucleated Red Blood Cells % (auto) 0.0, Anion Gap 6L, Glomerular Filtration Rate > 60.0, Blood Urea Nitrogen 27H, Creatinine 0.82, Sodium Level 143, Potassium Level 3.8, Chloride Level 111H, Carbon Dioxide Level 26, Calcium Level 7.8L, Aspartate Amino Transf (AST/SGOT) 22, Alanine Aminotransferase (ALT/SGPT) 26, Alkaline Phosphatase 83, Total Bilirubin 0.4, Total Protein 5.3L, Albumin 2.4#L, Magnesium Level 1.4L, Albumin/Globulin Ratio 0.83L 08/16/18 05:55: Bedside Glucose (Misc Panel) 130H 08/16/18 11:18: Bedside Glucose (Misc Panel) 117H CBC/BMP Laboratory Tests 08/16/18 05:37 Red Blood Count 3.59 L, Mean Corpuscular Volume 91.6, Mean Corpuscular Hemoglobin 30.6, Mean Corpuscular Hemoglobin Concent 33.4, Red Cell Distribution Width 12.3, Calcium Level 7.8 L, Aspartate Amino Transf (AST/SGOT) 22, Alanine Aminotransferase (ALT/SGPT) 26, Alkaline Phosphatase 83, Total Bilirubin 0.4, Total Protein 5.3 L, Albumin 2.4 #L FSBS Laboratory Tests Test 08/15/18 18:08 08/16/18 00:08 08/16/18 05:55 08/16/18 11:18 Range/Units Bedside Glucose (Misc Panel) 160 131 130 117 70-105 MG/DL Discharge Medications Scheduled (Carly Black) 300 Unit/Ml Inj, 44 UNIT SC DAILY, (Reported) Amlodipine Besylate (Amlodipine Besylate) 10 Mg Tab, 10 MG PO DAILY, (Reported) Fluoxetine Hcl (Fluoxetine HCl) 40 Mg Cap, 40 MG PO DAILY, (Reported) Hydrochlorothiazide (Hydrochlorothiazide) 25 Mg Tab, 25 MG PO DAILY, (Reported) Lamotrigine (Lamotrigine) 100 Mg Tab, 100 MG PO QAM, (Reported) Lamotrigine (Lamotrigine) 100 Mg Tab, 200 MG PO QHS, (Reported) Lisinopril (Lisinopril) 40 Mg Tab, 40 MG PO DAILY, (Reported) Metformin Hydrochloride (Metformin Hydrochloride) 500 Mg Tab, 1,000 MG PO BID, (Reported) Quetiapine Fumerate (Seroquel) 200 Mg Tab, 200 MG PO QHS, (Reported) Valacyclovir Hydrochloride (Valtrex) 1 Gm Tab, 1 TAB PO DAILY, (Reported) Scheduled PRN Tizanidine Hydrochloride (Tizanidine Hydrochloride) 4 Mg Tab, 4 MG PO TID PRN for MUSCLE SPASMS, (Reported) Allergies Coded Allergies: morphine (Verified Adverse Reaction, Mild, N/V, 08/15/18) DENY QUILES MD Aug 16, 2018 16:44
== END 2018-08-16 16:29 | disposition home or self-care (01) ==
LOC: M ED 07:18 → M ED INP 12:17 → M MSPAV 14:52
PROVIDERS: ADMIT Internal Medicine; ATTEND Internal Medicine
DX: R11.2 Nausea with vomiting, unspecified (principal); E11.9 Type 2 diabetes mellitus without complications; K31.84 Gastroparesis; I10 Essential (primary) hypertension; E78.5 Hyperlipidemia, unspecified; Z79.899 Other long term (current) drug therapy; Z79.84 Long term (current) use of oral hypoglycemic drugs; E66.9 Obesity, unspecified; Z88.5 Allergy status to narcotic agent
CPT/HCPCS: 36415; 74177; 76705; 80048; 80053; 80076; 81001; 82550; 82553; 83036; 83605; 83690; 83735; 84484; 85025; 85027; 87502; 93005; 96361; 96372; 96374; 96375; 96376; 99284; G0378; J1650; J1885; J2405; J2765; Q9967

== ENCOUNTER → 2018-09-04 | Outpatient (CLI) | payer MEDICARE ==
[~2018-09-04] MED LIST changes: +FLUO40CA PO; +LAMO100T PO; +METF-839 PO; +OMEP40CA2 PO; +TIZA4TAB4 PO; +TIZANIDINE; +VALT1TAB PO
--- NOTE | 2018-09-04 14:30 | REP ---
Thyroid sonography: History: Followup thyroid nodules. Comparison sonography September 12, 2017. Findings: Thyroid isthmus today measures 0.4 cm in thickness. Right lobe dimensions are 5.1 x 2.3 x 1.9 cm. Left lobe measures 5.3 x 1.6 x 1.6 cm. Thyroid texture is heterogeneous. There are multiple hypoechoic nodules bilaterally most of which are quite small. Previously noted nodule containing shadowing calcification is seen measuring 7 mm in greatest diameter. This is unchanged in appearance. All of the hypoechoic nodules in the left lobe measure under a centimeter. All of the nodules in the left lobe measure under a centimeter as well. The nodules are more numerous. The findings are similar when compared to the prior study. Impression: Multinodular thyroid.
== END ==
LOC: M WHC 08:47
PROVIDERS: ATTEND Family Medicine
DX: E04.1 Nontoxic single thyroid nodule (principal)

== ENCOUNTER → 2018-09-22 | Outpatient (REF) | payer MEDICARE ==
[2018-09-22 12:41] LABS: ALBUMIN 3.1 GM/DL (3.2-5.2); ALT/SGPT 23 U/L (12-78); BILIRUBIN,TOTAL 0.2 MG/DL (0.2-1.0); BLOOD UREA NITROGEN 26 MG/DL (7-18); CALCIUM LEVEL 9.3 MG/DL (8.5-10.1); CARBON DIOXIDE LEVEL 28 MEQ/L (21-32); CHLORIDE LEVEL 106 MEQ/L (98-107); CHOLESTEROL LEVEL 221 MG/DL (<200); CHOLESTEROL RISK RATIO 6.138 (<5); CREATININE FOR GFR 0.81 MG/DL (0.55-1.30); FREE T4 0.93 NG/DL (0.76-1.46); GLOMERULAR FILTRATION RATE > 60.0 (>51); GLUCOSE, FASTING 202 MG/DL (70-100); HDL CHOLESTEROL 36 MG/DL (>40); LDL CHOLESTEROL 124 MG/DL (<100); NON-HDL-C 185 MG/DL; POTASSIUM SERUM 4.4 MEQ/L (3.5-5.1); SODIUM LEVEL 141 MEQ/L (136-145); THYROID STIMULATING HORMONE 0.785 uIU/ML (0.358-3.740); TOTAL PROTEIN 6.5 GM/DL (6.4-8.2); TRIGLYCERIDES LEVEL 303 MG/DL (<150)
[2018-09-22 13:03] LABS: MALB URINE SIEMENS 21.5 MG/L; MAU/CREAT RATIO 10.4 MCG/MG (0.0-30.0)
== END ==
LOC: M SFHCPLAZ 08:54
PROVIDERS: ATTEND Family Medicine
DX: R11.2 Nausea with vomiting, unspecified (principal); I10 Essential (primary) hypertension; E04.1 Nontoxic single thyroid nodule; E78.5 Hyperlipidemia, unspecified; E11.42 Type 2 diabetes mellitus with diabetic polyneuropathy

== ENCOUNTER → 2018-09-25 | Outpatient (REF) | payer MEDICARE ==
[2018-09-26 00:09] LABS: CHLAMYDIA DNA AMPLIFICATION NEGATIVE (NEGATIVE); GC DNA AMPLIFICATION NEGATIVE (NEGATIVE)
== END ==
LOC: M SFHCPLAZ 17:00
PROVIDERS: ATTEND Family Medicine
DX: Z11.3 Encounter for screening for infections with a predominantly sexual mode of transmission (principal); Z12.4 Encounter for screening for malignant neoplasm of cervix; R74.8 Abnormal levels of other serum enzymes
CPT/HCPCS: 82977; 87491; 87591; 87624; G0123; G0463

== ENCOUNTER → 2018-09-25 | Outpatient (REF) | payer MEDICARE ==
[2018-09-30 14:10] LABS: HPV LOW VOL RFLX Negative (Negative)
== END ==
LOC: M SFHCPLAZ 18:14
PROVIDERS: ATTEND Family Medicine
DX: Z12.4 Encounter for screening for malignant neoplasm of cervix (principal)
CPT/HCPCS: 87624; G0123

== ENCOUNTER → 2018-09-25 | Outpatient (REF) | payer MEDICARE | LOC: M SFHCPLAZ 15:33 | PROVIDERS: ATTEND Family Medicine | DX: R74.8 Abnormal levels of other serum enzymes (principal) ==

== ENCOUNTER → 2018-10-02 | Outpatient (CLI) | payer MEDICARE ==
--- NOTE | 2018-10-02 15:53 | REP ---
Clinical: Pelvic pain and dyspareunia . Technique: Transabdominal pelvic ultrasound followed by transvaginal examination for better evaluation of the endometrium and adnexa with color Doppler evaluation of the ovaries. Findings: Bladder is unremarkable and measures 5.9 x 7.1 x 5.1 cm . Heterogeneous anteverted uterus measures 7.9 x 3.7 x 6.0 cm with a 1.1 x 1.5 cm hyperechoic area in the uterine fundus possibly representing dystrophic calcified fibroid. The endometrial complex is incompletely evaluated due to technical factors and limitations. A small amount of fluid in the cervical canal is suggested. Bilateral ovaries are not identified due to technical factors and limitations. Impression: 1. Examination is limited due to body habitus and associated technical factors. Possible calcified dystrophic fibroid in the uterine fundus. 2. The endometrial complex is well as the bilateral ovaries are incompletely evaluated. A small amount of cervical fluid is suggested.
== END ==
LOC: M WHC 11:13
PROVIDERS: ATTEND Family Medicine
DX: R10.2 Pelvic and perineal pain (principal); N94.10 Unspecified dyspareunia

== ENCOUNTER → 2018-10-17 | Outpatient (CLI) | payer MEDICARE ==
--- NOTE | 2018-10-17 19:20 | REP ---
MRI PELVIS: TECHNIQUE: Multiple sequences were obtained in the axial, coronal and sagittal planes prior to and following the intravenous administration of 10 mL ProHance. Correlation is made with prior pelvic ultrasound 10/02/[address] 08/15/2018. Uterine length is 10.2 cm. In the fundus of the uterus there is a fibroid which measures approximately 1.8 cm in diameter. There is artifact in the central body of the uterus in the region of the endometrial cavity which may be due to small underlying metallic structure or other foreign object. This obscures this portion of the endometrium. The inferior endometrium is normal in appearance and has a thickness of 4 mm. The ovaries appear normal. No suspicious ovarian mass is seen. There is a small cyst of the left ovary which measures 1.4 cm in diameter, benign. There is no other evidence of adnexal mass. No shoshana fluid is seen. There is no adenopathy in the pelvis. The visualized osseous structures demonstrate no bone lesion. Thee are small bilateral inguinal hernia containing fat. IMPRESSION: Fundal fibroid 1.8 cm in diameter. Foreign object in the endometrial cavity in the body of the uterus causes surrounding artifact and obscures the endometrium in this region. The inferior endometrium appears normal in thickness measuring 4 mm. No ovarian or adnexal mass. Small bilateral inguinal hernia contain fat. Electronically Signed by Jerrell Barreto MD 10/21/2018 09:54 A
== END ==
LOC: M PLARAD 11:09
PROVIDERS: ATTEND Family Medicine
DX: R10.9 Unspecified abdominal pain (principal)

== ENCOUNTER → 2018-10-20 | Outpatient (CLI) | payer MEDICARE ==
[2018-10-20 09:53] LABS: BASO % 0.4 % (0.0-1.0); EOS # 0.2 10^3/uL (0.0-0.50); EOS % 2.1 % (0.0-3.0); HEMATOCRIT 39.1 % (36.0-47.0); HEMOGLOBIN 12.9 g/dl (12.0-15.5); LYMPH # 2.6 10^3/uL (1.5-4.5); MEAN CORPUSCULAR HEMOGLOBIN 31.2 pg (27.0-33.0); MEAN CORPUSCULAR VOLUME 94.7 fl (80.0-96.0); MONO # 0.6 10^3/uL (0.0-0.8); MONO % 6.3 % (0.0-5.0); NEUTROPHILS # 6.6 10^3/uL (1.8-7.7); NEUTROPHILS % 64.8 % (36.0-66.0); PLATELET COUNT, AUTOMATED 249 10^3/uL (150-450); RED BLOOD COUNT 4.13 10^6/uL (4.00-5.40); WHITE BLOOD COUNT 10.1 10^3/uL (4.0-10.0)
[2018-10-20 10:25] LABS: CREATININE FOR GFR 1.03 MG/DL (0.55-1.30); POTASSIUM SERUM 4.9 MEQ/L (3.5-5.1)
== END ==
LOC: M LAB 08:42
PROVIDERS: ATTEND Podiatrist
DX: M20.22 Hallux rigidus, left foot (principal); M79.671 Pain in right foot

== ENCOUNTER → 2018-10-21 | Outpatient (REF) | payer MEDICARE ==
[2018-10-21 16:43] LABS: TOTAL 25(OH) VITAMIN D 11.9 NG/ML (30.0-100.0)
== END ==
LOC: M SFHCPLAZ 14:22
PROVIDERS: ATTEND Family Medicine
DX: R74.8 Abnormal levels of other serum enzymes (principal)
CPT/HCPCS: 36415; 82306; 83970; G0463

== ENCOUNTER → 2018-11-04 | Outpatient (CLI) | payer MEDICARE | LOC: M SMT 09:32 | PROVIDERS: ATTEND Obstetrics & Gynecology | DX: Z13.79 Encounter for other screening for genetic and chromosomal anomalies (principal) ==

== ENCOUNTER → 2018-12-08 | Outpatient (CLI) | payer MEDICARE ==
[2018-12-08 10:28] LABS: BASO % 0.5 % (0.0-1.0); EOS # 0.2 10^3/uL (0.0-0.50); HEMATOCRIT 40.8 % (36.0-47.0); HEMOGLOBIN 13.7 g/dl (12.0-15.5); LYMPH # 2.4 10^3/uL (1.5-4.5); LYMPH % 28.9 % (24.0-44.0); MEAN CORPUSCULAR HEMOGLOBIN 30.9 pg (27.0-33.0); MEAN CORPUSCULAR HGB CONC 33.6 g/dl (32.0-36.5); MEAN CORPUSCULAR VOLUME 92.1 fl (80.0-96.0); MONO # 0.5 10^3/uL (0.0-0.8); MONO % 5.8 % (0.0-5.0); NEUTROPHILS # 5.3 10^3/uL (1.8-7.7); NEUTROPHILS % 62.4 % (36.0-66.0); PLATELET COUNT, AUTOMATED 256 10^3/uL (150-450); RED BLOOD COUNT 4.43 10^6/uL (4.00-5.40); WHITE BLOOD COUNT 8.4 10^3/uL (4.0-10.0)
[2018-12-08 10:48] LABS: BLOOD UREA NITROGEN 27 MG/DL (7-18); CALCIUM LEVEL 9.1 MG/DL (8.5-10.1); CARBON DIOXIDE LEVEL 26 MEQ/L (21-32); CHLORIDE LEVEL 109 MEQ/L (98-107); CREATININE FOR GFR 0.82 MG/DL (0.55-1.30); GLOMERULAR FILTRATION RATE > 60.0 (>51); GLUCOSE, FASTING 99 MG/DL (70-100); POTASSIUM SERUM 4.2 MEQ/L (3.5-5.1); SODIUM LEVEL 142 MEQ/L (136-145)
== END ==
LOC: M LAB 10:05
PROVIDERS: ATTEND Podiatrist
DX: M20.21 Hallux rigidus, right foot (principal); M79.671 Pain in right foot

== ENCOUNTER 2018-12-12 05:36 | Day surgery (SDC) | payer MEDICARE ==
[~2018-12-12] VITALS: Ht 165.1 cm; Wt 104.3 kg
[2018-12-12] MEDS ORDERED: LR 1,000 ML IV ONE (05:45)
[2018-12-12] MEDS ORDERED: LIDOCAINE 1% MDV 20ML VIAL SQ PRN (06:00)
[2018-12-12] MEDS ORDERED: dexameTHASONE 4 MG/ML 1ML VIAL (J1100) As Ordered ONE ×2 (06:53→07:14)
[2018-12-12] MEDS ORDERED: KETOROLAC 60 MG/2 ML VIAL (J1885) As Ordered ONE (06:53)
[2018-12-12] MEDS ORDERED: ONDANSETRON 4MG/2ML VIAL (J2405) As Ordered ONE (06:53)
[2018-12-12] MEDS ORDERED: LIDOCAINE 2% INJ 100 MG/5 ML SDV (FOR ANES.) As Ordered ONE (06:53)
[2018-12-12] MEDS ORDERED: PROPOFOL 200 MG/20 ML VIAL As Ordered ONE ×2 (06:53→08:04)
[2018-12-12] MEDS ORDERED: fentaNYL 100 MCG/2 ML INJECTION (J3010) As Ordered ONE (06:54)
[2018-12-12] MEDS ORDERED: MIDAZOLAM INJ 2 MG/2 ML VIAL (J2250) As Ordered ONE (06:54)
[2018-12-12] MEDS ORDERED: ROPIvacaine 0.5% 30 ML INJECTION (J2795 PER 1MG) As Ordered ONE (07:13)
[2018-12-12] MEDS ORDERED: BUPIVACAINE HCL 0.5% 10 ML VIAL As Ordered ONE (07:13)
[2018-12-12] MEDS ORDERED: LIDOCAINE PRES-FREE 2% 10ML AMP As Ordered ONE (07:13)
[2018-12-12] MEDS ORDERED: BACITRACIN PWD 50,000 UNITS VIAL As Ordered ONE (07:14)
[2018-12-12] MEDS ORDERED: NEOSPORIN GU IRRIG 20 ML VIAL As Ordered ONE (07:14)
[2018-12-12] MEDS ORDERED: METOCLOPRAMIDE INJ 10MG/2ML VIAL (J2765) As Ordered ONE (07:46)
[2018-12-12] MEDS ORDERED: PHENYLephrine HCL 500 MCG/5 ML (100MCG/ML) SYRINGE (J2370) As Ordered ONE ×2 (08:01→08:47)
[2018-12-12] MEDS ORDERED: ePHEDrine SULFATE 25 MG/5 ML(5MG/ML) SYRINGE As Ordered ONE (08:01)
[2018-12-12] MEDS ORDERED: PERCOCET 5MG/325MG TAB PO PRN (10:00)
[2018-12-12] MEDS ORDERED: ONDANSETRON 4MG/2ML VIAL (J2405) IV PRN (10:00)
[2018-12-12] MEDS ORDERED: fentaNYL 100 MCG/2 ML INJECTION (J3010) IV PRN (10:00)
[2018-12-12 10:58] VITALS: BP 178/82
--- NOTE | 2018-12-12 11:25 | REP ---
RIGHT FOOT SERIES: Three views. HISTORY: Cheilectomy with fusion on the right. FINDINGS: There is a metallic screw plate fixation device across the 1st metatarsal phalangeal joint along with a obliquely oriented metallic screw indicating arthrodesis of the first MTP. There is overlying soft tissue swelling. Large Achilles and plantar calcaneal spurs are noted. There is some midfoot spurring at the talonavicular articulation. X-rays are obtained portably through overlying cast material. Electronically Signed by Ludin Gregorio MD 12/12/2018 03:42 P
--- NOTE | 2018-12-12 14:33 | RO ---
DATE OF PROCEDURE: 12/12/2018 PREPROCEDURE DIAGNOSIS: Hallux limitus deformity right foot. POSTPROCEDURE DIAGNOSIS: Hallux limitus deformity right foot. OPERATIVE PROCEDURE: SURGEON: Dr. Shreyas Quispe DPM MEDICAL EDUCATION SPECIALIST: None. ANESTHESIA: Local MAC. IRRIGATION: Dilute bacitracin, neomycin and polymyxin B solution. HEMOSTASIS: Ankle pneumatic tourniquet at 200 mmHg for 74 minutes. HARDWARE UTILIZED: Arthrex MTP standard plate with screw fixation, MTP standard plate with locking and nonlocking screws, nonlocking screws are 18 mm times three and a 24 mm times one. Locking screws are a size 3.0 x 14 and a 3.0 x 20 and a 3.0 compression screw 34 mm in length. DESCRIPTION OF PROCEDURE: On 12/12/2018 this 58-year-old white female was taken from her hospital room to the operating room and placed on the operating table in supine position. Following the induction of IV sedation and local and regional anesthesia, the right lower extremity was prepped and draped in the usual aseptic manner. Sterile draping was completed and the tourniquet was rapidly inflated and attention was directed to the patient's first metatarsophalangeal joint where the following procedure was performed; FUSION FIRST METATARSOPHALANGEAL JOINT RIGHT FOOT: Attention was directed to the patient's right foot where a 6 cm incision was placed over the first metatarsophalangeal joint medial to the extensor tendon. The incision was deepened through the subcutaneous tissues and all coursing venous tributaries were identified, underscored, clamped, cut, ligated and electrocoagulated as necessary. Dissection was carried down in the same plane. All bony structures were identified, mobilized and tracked medial and laterally. The first metatarsophalangeal joint was inspected and there was noted to be no remaining cartilage on the first metatarsal proximal phalanx. There was a loose body present on the medial aspect of the first metatarsophalangeal joint. The joint was freed with a metatarsal elevator. Utilizing a sagittal saw, the medial eminence was osteotomized from distal to proximal through and through. The dorsal spur was osteotomized from dorsal to plantar, parallel with the dorsal shaft. This was removed utilizing a rongeur. The remaining first metatarsophalangeal joint was recontoured. Utilizing a cup and cone reamers, the first metatarsophalangeal joint was reamed to provide good bone to bone contact. Utilizing a 1.1 mm wire, the first metatarsal and proximal phalanx were fenestrated. Curette was utilized to remove any remaining debris from the first metatarsophalangeal joint. The wound was flushed with copious amounts of dilute bacitracin, neomycin and polymyxin B solution. Stab incision was placed on the medial aspect of the proximal phalanx and a K wire was driven across the first metatarsophalangeal joint with the hallux brought into a position to help approximate 5 mm of dorsiflexion on the weight bearing surface. A 3.0 x 34 mm screw was then placed across the first metatarsophalangeal joint in a distal, medial to plantar lateral orientation. Good compression was noted of the first metatarsophalangeal joint. MTP standard right sided Arthrex plate was then placed on the first metatarsophalangeal joint and contoured to fit the first metatarsophalangeal joint, locking screws were placed distally, a 3.0 x 14 and a 3.0 x 20. Nonlocking screws were then utilized to fix the remaining holes. Intraoperative C-arm imagery reveals good alignment of the first metatarsophalangeal joint with good fixation. The wound was flushed with copious amounts of dilute bacitracin, neomycin and polymyxin B solution. Attention was directed towards closure where the capsular structures were coapted and maintained using #2-0 Vicryl in a simple interrupted type fashion. The subcutaneous tissues were coapted and maintained using #4-0 Monocryl in simple interrupted type fashion. The skin incision was coapted and maintained using #4-0 Prolene in simple interrupted and horizontal mattress type fashion. Sterile dressing was applied to the patient's right foot consisting of Adaptic, 4x4s, 4x4 splints, Alysha, Kerlix. The ankle pneumatic tourniquet was rapidly deflated and instantaneous capillary filling time was noted in digits 1-5 of the patient's right foot. A well molded fiberglass cast was placed on the patient's right lower extremity. We deferred a right angle to the leg. The patient apparently having tolerated the surgical procedure well was taken from the OR to the recovery room with vital signs stable, patient afebrile, for further monitoring by the anesthesia department. All surgical specimens removed during the operative procedure were sent to pathology for gross and microscopic examination. Postoperative instructions will be given upon discharge.
== END 2018-12-12 12:30 | disposition home or self-care (01) ==
LOC: M SDC 05:36
PROVIDERS: ATTEND Podiatrist
DX: M20.21 Hallux rigidus, right foot (principal); M79.671 Pain in right foot; I10 Essential (primary) hypertension; E78.5 Hyperlipidemia, unspecified; E03.9 Hypothyroidism, unspecified; E11.9 Type 2 diabetes mellitus without complications; K21.9 Gastro-esophageal reflux disease without esophagitis; Z79.4 Long term (current) use of insulin; Z79.84 Long term (current) use of oral hypoglycemic drugs; Z79.899 Other long term (current) drug therapy; Z79.82 Long term (current) use of aspirin
CPT/HCPCS: 28750; 73630; 76000; 88300; 97161; 97530; C1713; J0690; J1100; J1885; J2250; J2370; J2405; J2765; J3010

== ENCOUNTER → 2019-01-29 | Outpatient (REF) | payer MEDICARE, MEDICAID ==
[~2019-01-29] MED LIST changes: +CLON0.5T2 PO; -CLON0.5T8 PO; -LAMO100T PO; +LAMO100T3 PO; -OMEP40CA2 PO; +OMEP40CA97 PO
[2019-01-29 19:27] LABS: BASO % 0.2 % (0.0-1.0); EOS # 0.2 10^3/uL (0.0-0.5); EOS % 1.9 % (0.0-3.0); HEMATOCRIT 40.5 % (36.0-47.0); HEMOGLOBIN 13.8 g/dl (12.0-15.5); LYMPH # 1.6 10^3/uL (1.5-5.0); LYMPH % 17.2 % (24.0-44.0); MEAN CORPUSCULAR HEMOGLOBIN 31.4 pg (27.0-33.0); MEAN CORPUSCULAR HGB CONC 34.1 g/dl (32.0-36.5); MEAN CORPUSCULAR VOLUME 92.3 fl (80.0-96.0); MONO # 0.6 10^3/uL (0.0-0.8); MONO % 6.5 % (0.0-5.0); NEUTROPHILS # 6.8 10^3/uL (1.5-8.5); NEUTROPHILS % 73.7 % (36.0-66.0); PLATELET COUNT, AUTOMATED 269 10^3/uL (150-450); RED BLOOD COUNT 4.39 10^6/uL (4.00-5.40); WHITE BLOOD COUNT 9.3 10^3/uL (4.0-10.0)
[2019-01-29 19:37] LABS: ALBUMIN 3.6 GM/DL (3.2-5.2); ALT/SGPT 21 U/L (12-78); BILIRUBIN,TOTAL 0.5 MG/DL (0.2-1.0); BLOOD UREA NITROGEN 24 MG/DL (7-18); CALCIUM LEVEL 9.8 MG/DL (8.5-10.1); CARBON DIOXIDE LEVEL 30 MEQ/L (21-32); CHLORIDE LEVEL 100 MEQ/L (98-107); CREATININE FOR GFR 0.96 MG/DL (0.55-1.30); GLOMERULAR FILTRATION RATE > 60.0 (>51); GLUCOSE, FASTING 328 MG/DL (70-100); POTASSIUM SERUM 4.3 MEQ/L (3.5-5.1); SODIUM LEVEL 137 MEQ/L (136-145); TOTAL PROTEIN 6.9 GM/DL (6.4-8.2)
[2019-01-29 19:42] LABS: HEMOGLOBIN A1c 8.1 %
== END ==
LOC: M SFHCPLAZ 15:08
PROVIDERS: ATTEND Family Medicine
DX: R10.31 Right lower quadrant pain (principal); E11.42 Type 2 diabetes mellitus with diabetic polyneuropathy
CPT/HCPCS: 36415; 80053; 83036; 85025; G0463

== ENCOUNTER → 2019-01-30 | Outpatient (CLI) | payer MEDICARE ==
[~2019-01-30] MED LIST changes: -CLON0.5T2 PO; +CLON0.5T8 PO; +GASTROGRAFIN SOLUTION 30ML (Q9963) As Ordered ONE; +ISOVUE-370 76% 100ML VIAL (Q9967) As Ordered ONE; +LAMO100T PO; -LAMO100T3 PO; +OMEP40CA2 PO; -OMEP40CA97 PO
--- NOTE | 2019-01-30 16:37 | REP ---
CT of the abdomen and pelvis with IV and oral contrast for right lower quadrant pain: Comparison is 08/15/2018. The visualized lung gordillo are unremarkable. The hepatic parenchyma is homogeneous and unremarkable. There are surgical clips in the gallbladder fossa. The pancreas, spleen, and adrenals are unremarkable. There is bilateral renal cortical scarring. This is unchanged. There are no renal masses, cysts or calculi. No hydronephrosis. Abdominal aorta is R. There is no bowel distension or obstruction. The mesentery is unremarkable. There is no ascites. Pelvis: The appendix is unremarkable. The terminal ileum is unremarkable. Uterus and adnexa are unremarkable. There are bilateral fat containing inguinal hernias. The bladder is unremarkable. There is no pelvic adenopathy or ascites. The pelvic bowel loops are unremarkable. Impression: The appendix and terminal ileum are unremarkable. The uterus and adnexa are unremarkable. There is no ascites, adenopathy or mass. There is a cholecystectomy. Otherwise, negative CT of the abdomen and pelvis. Electronically Signed by Jerrell Crump MD 01/30/2019 04:29 P
== END ==
LOC: M RAD 12:19
PROVIDERS: ATTEND Family Medicine
DX: R10.31 Right lower quadrant pain (principal)
CPT/HCPCS: 74177; Q9963; Q9967

== ENCOUNTER 2019-06-11 12:25 | Emergency (ER) | payer MEDICARE ==
[~2019-06-11] VITALS: Ht 167.6 cm; Wt 103.7 kg
[~2019-06-11 12:25] MED LIST changes: +CLON0.5T2 PO; -CLON0.5T8 PO; -GASTROGRAFIN SOLUTION 30ML (Q9963) As Ordered ONE; -ISOVUE-370 76% 100ML VIAL (Q9967) As Ordered ONE; -LAMO100T PO; +LAMO100T3 PO; -OMEP40CA2 PO; +OMEP40CA97 PO
--- NOTE | 2019-06-11 14:00 | REP ---
CHEST, TWO VIEWS: There is no evidence of acute infiltrate. No pleural effusion is seen. The heart is normal in size. The mediastinal silhouette is unremarkable. The visualized osseous structures are intact. There is mild calcification of the thoracic aorta. There are degenerative changes of the spine. IMPRESSION: No acute pulmonary disease. Electronically Signed by Jerrell Barreto MD 06/12/2019 12:31 P
[2019-06-11 15:54] LABS: BASO % 0.3 % (0.0-1.0); EOS # 0.2 10^3/uL (0.0-0.5); EOS % 1.9 % (0.0-3.0); HEMATOCRIT 42.2 % (36.0-47.0); HEMOGLOBIN 14.3 g/dl (12.0-15.5); LYMPH # 2.9 10^3/uL (1.5-5.0); LYMPH % 29.5 % (24.0-44.0); MEAN CORPUSCULAR HEMOGLOBIN 30.6 pg (27.0-33.0); MEAN CORPUSCULAR HGB CONC 33.9 g/dl (32.0-36.5); MEAN CORPUSCULAR VOLUME 90.2 fl (80.0-96.0); MONO # 0.6 10^3/uL (0.0-0.8); MONO % 6.2 % (0.0-5.0); NEUTROPHILS # 6.1 10^3/uL (1.5-8.5); NEUTROPHILS % 61.6 % (36.0-66.0); PLATELET COUNT, AUTOMATED 285 10^3/uL (150-450); RED BLOOD COUNT 4.68 10^6/uL (4.00-5.40); WHITE BLOOD COUNT 9.9 10^3/uL (4.0-10.0)
[2019-06-11 16:34] LABS: ALBUMIN 3.7 GM/DL (3.2-5.2); ALT/SGPT 32 U/L (12-78); BILIRUBIN,DIRECT 0.1 MG/DL (0.0-0.2); BILIRUBIN,TOTAL 0.4 MG/DL (0.2-1.0); BLOOD UREA NITROGEN 18 MG/DL (7-18); CALCIUM LEVEL 9.4 MG/DL (8.5-10.1); CARBON DIOXIDE LEVEL 32 MEQ/L (21-32); CHLORIDE LEVEL 106 MEQ/L (98-107); CK-MB VALUE MASS 1.8 NG/ML (<3.6); CPK CREATINE PHOSPHOKINASE 91 U/L (26-192); CREATININE FOR GFR 0.74 MG/DL (0.55-1.30); GLOMERULAR FILTRATION RATE > 60.0 (>51); GLUCOSE, FASTING 166 MG/DL (70-100); MB/CK RELATIVE INDEX 1.98 (< OR =4); NT-PRO BNP 256 PG/ML (<125); POTASSIUM SERUM 3.9 MEQ/L (3.5-5.1); SODIUM LEVEL 141 MEQ/L (136-145); THYROID STIMULATING HORMONE 0.739 uIU/ML (0.358-3.740); TOTAL PROTEIN 7.3 GM/DL (6.4-8.2); TROPONIN I < 0.02 NG/ML (< 0.10)
[2019-06-11] MEDS ORDERED: ISOVUE-370 76% 100ML VIAL (Q9967) As Ordered ONE (16:52)
--- NOTE | 2019-06-11 17:56 | REPVR ---
PROCEDURE INFORMATION: Exam: CT Angiography Chest With Contrast Exam date and time: 06/11/2019 5:14 PM Age: 58 years old Clinical indication: Shortness of breath; Additional info: SOB TECHNIQUE: Imaging protocol: Computed tomographic angiography of the chest with intravenous contrast. 3D rendering: MIP and/or 3D reconstructed images were created by the technologist. Radiation optimization: All CT scans at this facility use at least one of these dose optimization techniques: automated exposure control; mA and/or kV adjustment per patient size (includes targeted exams where dose is matched to clinical indication); or iterative reconstruction. Contrast material: ISOVUE 370; Contrast volume: 75 ml; Contrast route: IV; COMPARISON: CR Chest, 2 view PA, Lat 06/11/2019 12:47 PM FINDINGS: Pulmonary arteries: There is opacification of the pulmonary arteries with no evidence of pulmonary embolus. Aorta: There is opacification of the aorta which appears intact. Lungs: There is mild diffuse prominence of the interstitial markings. Pleural space: There is no evidence of pneumothorax or pleural effusion. Heart: The in the heart is top-normal in size and there is no pericardial effusion. Liver: Normal appearing liver with a prominent left lobe. Spleen: Normal spleen. Lymph nodes: Unremarkable. No enlarged lymph nodes. Bones/joints: There is mild posterior osteophyte formation lower thoracic spine. Soft tissues: Unremarkable. IMPRESSION: No evidence of pulmonary embolus. Electronically signed by: Ross Romano On 06/11/2019 17:55:46 PM
[2019-06-11] MEDS ORDERED: TUSS1CAP5 PO (18:09)
[2019-06-11 18:27] VITALS: BP 160/110
--- NOTE | 2019-06-12 13:20 | ECGEPIP ---
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
[2019-06-16 08:06] LABS: BORDETELLA PARAPERTUSSIS PCR Negative (Negative); BORDETELLA PERTUSSIS BY PCR Negative (Negative)
== END 2019-06-11 18:28 | disposition home or self-care (01) ==
LOC: M ED 12:25
DX: R05 Cough (principal); I10 Essential (primary) hypertension; E78.5 Hyperlipidemia, unspecified; F60.3 Borderline personality disorder; Z79.899 Other long term (current) drug therapy; Z88.5 Allergy status to narcotic agent
CPT/HCPCS: 36415; 71046; 71275; 80048; 80076; 82550; 82553; 83605; 83880; 84443; 84484; 85025; 87040; 87486; 87581; 87633; 87798; 93005; 93041; 94760; 99285; Q9967

== ENCOUNTER → 2019-06-25 | Outpatient (CLI) | payer MEDICARE ==
[~2019-06-25] MED LIST changes: +TUSS1CAP5 PO
--- NOTE | 2019-06-25 11:53 | REPMRS ---
Patient History The patient states she had a clinical breast exam in September 2018. Family history of breast cancer at age 76 in mother, ovarian cancer at age 26 in niece. Digital Woman Screen Mammo: June 25, 2019 - Exam #: [id number] Bilateral CC and MLO view(s) were taken. Technologist: Kirstie Quinn Technologist Prior study comparison: January 02, 2017, digital woman screen mammo performed at [facility]. FINDINGS: There are scattered fibroglandular densities. There has been no change in the appearance of the mammogram from the prior studies. There is a mild amount of scattered fibroglandular density which is fairly symmetric. There is no interval development of dominant mass, architectural distortion, or grouped microcalcification suggestive of malignancy. 3-D tomosynthesis shows no additional findings. Assessment: BI-RADS/ACR category 1 mammogram. Negative Mammogram. Recommendation Routine screening mammogram of both breasts in 1 year (for women over age 40). This patient's Lifetime Breast Cancer Risk is estimated at 15.6 %. This mammogram was interpreted with the aid of an FDA-approved computer-aided dectection system. Electronically Signed By: Dashawn Gregorio MD 06/25/19 0365
== END ==
LOC: M WHC 10:11
PROVIDERS: ATTEND Family Medicine
DX: Z12.31 Encounter for screening mammogram for malignant neoplasm of breast (principal); Z80.3 Family history of malignant neoplasm of breast

== ENCOUNTER → 2019-07-20 | Outpatient (REF) | payer MEDICARE ==
[~2019-07-20] MED LIST changes: +ZOFR4TAB16 PO
[2019-07-20 17:52] LABS: BASO % 0.3 % (0.0-1.0); EOS # 0.2 10^3/uL (0.0-0.5); EOS % 1.3 % (0.0-3.0); HEMATOCRIT 38.2 % (36.0-47.0); HEMOGLOBIN 13.1 g/dl (12.0-15.5); LYMPH # 2.4 10^3/uL (1.5-5.0); LYMPH % 18.2 % (24.0-44.0); MEAN CORPUSCULAR HEMOGLOBIN 30.8 pg (27.0-33.0); MEAN CORPUSCULAR HGB CONC 34.3 g/dl (32.0-36.5); MEAN CORPUSCULAR VOLUME 89.7 fl (80.0-96.0); MONO # 0.7 10^3/uL (0.0-0.8); MONO % 5.4 % (0.0-5.0); NEUTROPHILS # 9.9 10^3/uL (1.5-8.5); NEUTROPHILS % 74.3 % (36.0-66.0); PLATELET COUNT, AUTOMATED 284 10^3/uL (150-450); RED BLOOD COUNT 4.26 10^6/uL (4.00-5.40); WHITE BLOOD COUNT 13.3 10^3/uL (4.0-10.0)
[2019-07-20 18:05] LABS: HEMOGLOBIN A1c 9.4 %
[2019-07-20 18:08] LABS: ALBUMIN 3.6 GM/DL (3.2-5.2); BILIRUBIN,TOTAL 0.4 MG/DL (0.2-1.0); CALCIUM LEVEL 9.9 MG/DL (8.5-10.1); CREATININE FOR GFR 1.37 MG/DL (0.55-1.30); GLOMERULAR FILTRATION RATE 42.3 (>51); POTASSIUM SERUM 4.1 MEQ/L (3.5-5.1)
== END ==
LOC: M SFHCPLAZ 14:51
PROVIDERS: ATTEND Nurse Practitioner Family
DX: S91.301A Unspecified open wound, right foot, initial encounter (principal); X58.XXXA Exposure to other specified factors, initial encounter; Y92.9 Unspecified place or not applicable; E11.42 Type 2 diabetes mellitus with diabetic polyneuropathy
CPT/HCPCS: 36415; 80053; 83036; 85025; G0463

== ENCOUNTER 2019-07-21 17:33 | Emergency (ER) | payer MEDICARE ==
[~2019-07-21] VITALS: Ht 162.6 cm; Wt 99.8 kg
[~2019-07-21 17:33] MED LIST changes: -ZOFR4TAB16 PO
[2019-07-21 18:41] LABS: BASO % 0.2 % (0.0-1.0); EOS # 0.2 10^3/uL (0.0-0.5); EOS % 1.4 % (0.0-3.0); HEMATOCRIT 41.5 % (36.0-47.0); HEMOGLOBIN 13.9 g/dl (12.0-15.5); LYMPH # 1.7 10^3/uL (1.5-5.0); LYMPH % 14.1 % (24.0-44.0); MEAN CORPUSCULAR HEMOGLOBIN 30.1 pg (27.0-33.0); MEAN CORPUSCULAR HGB CONC 33.5 g/dl (32.0-36.5); MEAN CORPUSCULAR VOLUME 89.8 fl (80.0-96.0); MONO # 0.7 10^3/uL (0.0-0.8); NEUTROPHILS # 9.6 10^3/uL (1.5-8.5); NEUTROPHILS % 77.9 % (36.0-66.0); PLATELET COUNT, AUTOMATED 263 10^3/uL (150-450); RED BLOOD COUNT 4.62 10^6/uL (4.00-5.40); WHITE BLOOD COUNT 12.3 10^3/uL (4.0-10.0)
[2019-07-21] MEDS ORDERED: ONDANSETRON 4MG/2ML VIAL (J2405) IV ONE (18:45)
[2019-07-21] MEDS ORDERED: NS 1,000 ML IV ONE (18:45)
[2019-07-21 19:09] LABS: ALBUMIN 3.7 GM/DL (3.2-5.2); ALT/SGPT 29 U/L (12-78); BILIRUBIN,DIRECT 0.2 MG/DL (0.0-0.2); BILIRUBIN,TOTAL 0.7 MG/DL (0.2-1.0); BLOOD UREA NITROGEN 19 MG/DL (7-18); CARBON DIOXIDE LEVEL 29 MEQ/L (21-32); CHLORIDE LEVEL 101 MEQ/L (98-107); CREATININE FOR GFR 0.85 MG/DL (0.55-1.30); GLOMERULAR FILTRATION RATE > 60.0 (>51); GLUCOSE, FASTING 240 MG/DL (70-100); LIPASE 65 U/L (73-393); POTASSIUM SERUM 3.8 MEQ/L (3.5-5.1); SODIUM LEVEL 139 MEQ/L (136-145); TOTAL PROTEIN 7.4 GM/DL (6.4-8.2)
[2019-07-21 19:31] LABS: CK-MB VALUE MASS 1.6 NG/ML (<3.6); CPK CREATINE PHOSPHOKINASE 223 U/L (26-192); MB/CK RELATIVE INDEX 0.72 (< OR =4); TROPONIN I < 0.02 NG/ML (< 0.10)
[2019-07-21] MEDS: GASTROGRAFIN SOLUTION 30ML PO SCH ×2 (19:33→20:01)
[2019-07-21] MEDS ORDERED: ISOVUE-370 76% 100ML VIAL (Q9967) As Ordered ONE (21:00)
--- NOTE | 2019-07-21 21:54 | REPVR ---
PROCEDURE INFORMATION: Exam: CT Abdomen And Pelvis With Contrast Exam date and time: 07/21/2019 9:04 PM Age: 59 years old Clinical indication: Vomiting; Abdominal pain; Epigastric; Additional info: Epigastric pain, vomiting TECHNIQUE: Imaging protocol: Computed tomography of the abdomen and pelvis with intravenous contrast. Radiation optimization: All CT scans at this facility use at least one of these dose optimization techniques: automated exposure control; mA and/or kV adjustment per patient size (includes targeted exams where dose is matched to clinical indication); or iterative reconstruction. Contrast material: ISOVUE 370; Contrast volume: 100 ml; Contrast route: IV; COMPARISON: CT ABD PELVIS WITH CONTRAST 01/30/2019 2:00 PM FINDINGS: Liver: Normal. No mass. Gallbladder and bile ducts: There has been prior cholecystectomy. No biliary duct dilation. Pancreas: Normal. No ductal dilation. Spleen: Normal. No splenomegaly. Adrenals: Normal. No mass. Kidneys and ureters: Mild renal atrophy with renal cortical thinning. Small cyst in the lower pole of the right kidney. No hydronephrosis or calculi. Stomach and bowel: Unremarkable. No obstruction. No mucosal thickening. Appendix: No evidence of appendicitis. Intraperitoneal space: Unremarkable. No free air. No significant fluid collection. Vasculature: Unremarkable. No abdominal aortic aneurysm. Lymph nodes: Unremarkable. No enlarged lymph nodes. Bladder: Unremarkable as visualized. Reproductive: Unremarkable as visualized. Bones/joints: There are degenerative changes in the spine and pelvis. Soft tissues: Bilateral small fat containing inguinal hernias, larger on the left. IMPRESSION: 1. No acute findings. 2. Mild renal cortical thinning. No hydronephrosis. 3. Small fat containing inguinal hernias. Electronically signed by: Robert Dyer On 07/21/2019 21:54:25 PM
[2019-07-21] MEDS ORDERED: ZOFR4TAB16 PO (22:36)
[2019-07-21 23:07] VITALS: BP 148/75
--- NOTE | 2019-07-22 20:51 | ECGEPIP ---
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
== END 2019-07-21 23:14 | disposition home or self-care (01) ==
LOC: M ED 17:33
DX: R10.13 Epigastric pain (principal); R11.10 Vomiting, unspecified; R00.0 Tachycardia, unspecified; E11.9 Type 2 diabetes mellitus without complications; I10 Essential (primary) hypertension; F31.89 Other bipolar disorder; F41.9 Anxiety disorder, unspecified; E78.5 Hyperlipidemia, unspecified; F60.3 Borderline personality disorder; M51.9 Unspecified thoracic, thoracolumbar and lumbosacral intervertebral disc disorder; M54.81 Occipital neuralgia; Z79.4 Long term (current) use of insulin; Z79.899 Other long term (current) drug therapy; Z88.5 Allergy status to narcotic agent
CPT/HCPCS: 74177; 80048; 80076; 82550; 82553; 83690; 84484; 85025; 93005; 93041; 94760; 96361; 96374; 99285; J2405; Q9963; Q9967

== ENCOUNTER → 2020-01-28 | Outpatient (CLI) | payer MEDICARE ==
[~2020-01-28] MED LIST changes: -AMLO10TA5 PO; +AMLO1TAB25 PO; +CYCL-707 PO; -CYCL10TA PO; +ZOFR4TAB16 PO
[2020-01-28 13:06] LABS: BASO % 0.4 % (0.0-1.0); EOS # 0.2 10^3/uL (0.0-0.5); EOS % 1.6 % (0.0-3.0); HEMATOCRIT 42.5 % (36.0-47.0); HEMOGLOBIN 14.4 g/dl (12.0-15.5); LYMPH # 2.1 10^3/uL (1.5-5.0); LYMPH % 19.7 % (24.0-44.0); MEAN CORPUSCULAR HEMOGLOBIN 30.4 pg (27.0-33.0); MEAN CORPUSCULAR HGB CONC 33.9 g/dl (32.0-36.5); MEAN CORPUSCULAR VOLUME 89.9 fl (80.0-96.0); MONO # 0.6 10^3/uL (0.0-0.8); NEUTROPHILS # 7.6 10^3/uL (1.5-8.5); NEUTROPHILS % 71.9 % (36.0-66.0); PLATELET COUNT, AUTOMATED 275 10^3/uL (150-450); RED BLOOD COUNT 4.73 10^6/uL (4.00-5.40); WHITE BLOOD COUNT 10.5 10^3/uL (4.0-10.0)
[2020-01-28 14:50] LABS: ALBUMIN 3.5 GM/DL (3.2-5.2); ALT/SGPT 27 U/L (12-78); BILIRUBIN,TOTAL 0.5 MG/DL (0.2-1.0); BLOOD UREA NITROGEN 15 MG/DL (7-18); CALCIUM LEVEL 9.7 MG/DL (8.5-10.1); CARBON DIOXIDE LEVEL 27 MEQ/L (21-32); CHLORIDE LEVEL 102 MEQ/L (98-107); CREATININE FOR GFR 0.96 MG/DL (0.55-1.30); GLOMERULAR FILTRATION RATE > 60.0 (>51); GLUCOSE, FASTING 406 MG/DL (70-100); SODIUM LEVEL 135 MEQ/L (136-145)
[2020-01-28 15:35] LABS: HEMOGLOBIN A1c 9.6 %
== END ==
LOC: M PLALAB 11:26
PROVIDERS: ATTEND Family Medicine
DX: R10.84 Generalized abdominal pain (principal); E11.65 Type 2 diabetes mellitus with hyperglycemia; I10 Essential (primary) hypertension

== ENCOUNTER → 2020-03-22 | Outpatient (CLI) | payer MEDICARE ==
--- NOTE | 2020-03-22 14:45 | REP ---
INDICATION: EARLY SATIETY. COMPARISON: None. TECHNIQUE/RADIOTRACER AND DOSE: 1.05 mCi of Technetium-99m sulfur colloid was ingested in two scrambled eggs and 6 ounces of water and sequential anterior and posterior images are acquired for an 89-minute imaging observation period. Regions of interest are drawn around the stomach to plot gastric emptying. FINDINGS: Expected T1/2 is 90 minutes. Seventy-one% emptying is observed in this patient during the 89-minute imaging observation period, for a calculated T1/2 in this patient of 59 minutes. IMPRESSION: Normal gastric emptying. <Electronically signed by Dashawn Gregorio > 03/22/20 [id number]
== END ==
LOC: M RAD 12:37
PROVIDERS: ATTEND Family Medicine
DX: R11.0 Nausea (principal); R68.81 Early satiety
CPT/HCPCS: 78264; A9541

== ENCOUNTER → 2020-08-09 | Outpatient (REF) | payer MEDICARE ==
[~2020-08-09] MED LIST changes: +HYDR-3490 PO; -HYDR25TAB PO; -LISI40TA PO; +LISI40TA4 PO
[2020-08-09 16:05] LABS: ALBUMIN 3.6 GM/DL (3.2-5.2); ALT/SGPT 19 U/L (12-78); BILIRUBIN,TOTAL 0.4 MG/DL (0.2-1.0); BLOOD UREA NITROGEN 17 MG/DL (7-18); CALCIUM LEVEL 9.5 MG/DL (8.5-10.1); CARBON DIOXIDE LEVEL 30 MEQ/L (21-32); CHLORIDE LEVEL 104 MEQ/L (98-107); CREATININE FOR GFR 0.89 MG/DL (0.55-1.30); GLOMERULAR FILTRATION RATE > 60.0 (>51); GLUCOSE, FASTING 313 MG/DL (70-100); POTASSIUM SERUM 4.4 MEQ/L (3.5-5.1); SODIUM LEVEL 138 MEQ/L (136-145); TOTAL PROTEIN 6.8 GM/DL (6.4-8.2)
[2020-08-09 16:46] LABS: HEMOGLOBIN A1c 9.6 %
== END ==
LOC: M SFHCPLAZ 12:33
PROVIDERS: ATTEND Family Medicine
DX: E11.42 Type 2 diabetes mellitus with diabetic polyneuropathy (principal); I10 Essential (primary) hypertension
CPT/HCPCS: 36415; 80053; 83036; G0463

== ENCOUNTER → 2020-09-15 | Outpatient (REF) | payer MEDICARE ==
[2020-09-15 17:25] LABS: HEMATOCRIT 39.9 % (36.0-47.0); HEMOGLOBIN 13.4 g/dl (12.0-15.5); MEAN CORPUSCULAR HEMOGLOBIN 30.9 pg (27.0-33.0); MEAN CORPUSCULAR HGB CONC 33.6 g/dl (32.0-36.5); MEAN CORPUSCULAR VOLUME 91.9 fl (80.0-96.0); PLATELET COUNT, AUTOMATED 243 10^3/uL (150-450); RED BLOOD COUNT 4.34 10^6/uL (4.00-5.40); WHITE BLOOD COUNT 11.4 10^3/uL (4.0-10.0)
[2020-09-15 17:54] LABS: FREE T4 0.95 NG/DL (0.76-1.46); THYROID STIMULATING HORMONE 0.947 uIU/ML (0.358-3.740)
== END ==
LOC: M SFHCPLAZ 14:38
PROVIDERS: ATTEND Family Medicine
DX: R53.83 Other fatigue (principal); E04.1 Nontoxic single thyroid nodule
CPT/HCPCS: 36415; 84439; 84443; 85027; G0463

== ENCOUNTER → 2021-01-05 | Outpatient (CLI) | payer MEDICARE ==
[~2021-01-05] MED LIST changes: +OMEP40CA4 PO; -OMEP40CA97 PO
[2021-01-05 11:06] LABS: HEMATOCRIT 40.5 % (36.0-47.0); HEMOGLOBIN 13.4 g/dl (12.0-15.5); MEAN CORPUSCULAR HEMOGLOBIN 31.2 pg (27.0-33.0); MEAN CORPUSCULAR HGB CONC 33.1 g/dl (32.0-36.5); MEAN CORPUSCULAR VOLUME 94.2 fl (80.0-96.0); PLATELET COUNT, AUTOMATED 280 10^3/uL (150-450); WHITE BLOOD COUNT 10.3 10^3/uL (4.0-10.0)
[2021-01-05 11:32] LABS: BLOOD UREA NITROGEN 21 MG/DL (7-18); CALCIUM LEVEL 9.3 MG/DL (8.5-10.1); CARBON DIOXIDE LEVEL 30 MEQ/L (21-32); CHLORIDE LEVEL 110 MEQ/L (98-107); CHOLESTEROL LEVEL 228 MG/DL (<200); CHOLESTEROL RISK RATIO 5.302 (<5); GLOMERULAR FILTRATION RATE > 60.0 (>51); GLUCOSE, FASTING 89 MG/DL (70-100); HDL CHOLESTEROL 43 MG/DL (>40); LDL CHOLESTEROL 154 MG/DL (<100); NON-HDL-C 185 MG/DL; POTASSIUM SERUM 4.7 MEQ/L (3.5-5.1); SODIUM LEVEL 144 MEQ/L (136-145); TRIGLYCERIDES LEVEL 153 MG/DL (<150)
== END ==
LOC: M PLALAB 08:27
PROVIDERS: ATTEND Family Medicine
DX: E11.42 Type 2 diabetes mellitus with diabetic polyneuropathy (principal); I10 Essential (primary) hypertension; R10.11 Right upper quadrant pain; E78.5 Hyperlipidemia, unspecified
CPT/HCPCS: 36415; 80048; 80061; 83036; 85027; G0463

== ENCOUNTER 2021-02-04 07:01 | Emergency (ER) | payer MEDICARE ==
[~2021-02-04] VITALS: Ht 165.1 cm; Wt 102.3 kg
[2021-02-04] MEDS ORDERED: NITROGLYCERIN 0.4 MG SUBL TABLET SL PRN (07:20)
[2021-02-04 07:33] VITALS: BP 109/60
[2021-02-04 07:40] LABS: BASO % 0.3 % (0.0-1.0); EOS # 0.1 10^3/uL (0.0-0.5); EOS % 0.9 % (0.0-3.0); HEMATOCRIT 38.4 % (36.0-47.0); LYMPH # 1.9 10^3/uL (1.5-5.0); LYMPH % 16.8 % (24.0-44.0); MEAN CORPUSCULAR HGB CONC 33.9 g/dl (32.0-36.5); MEAN CORPUSCULAR VOLUME 91.6 fl (80.0-96.0); MONO # 0.7 10^3/uL (0.0-0.8); MONO % 6.5 % (2.0-8.0); NEUTROPHILS # 8.5 10^3/uL (1.5-8.5); NEUTROPHILS % 75.1 % (36.0-66.0); PLATELET COUNT, AUTOMATED 260 10^3/uL (150-450); RED BLOOD COUNT 4.19 10^6/uL (4.00-5.40); WHITE BLOOD COUNT 11.3 10^3/uL (4.0-10.0)
[2021-02-04 08:14] LABS: ALBUMIN 2.9 GM/DL (3.2-5.2); ALT/SGPT 49 U/L (12-78); BILIRUBIN,DIRECT 0.1 MG/DL (0.0-0.2); BILIRUBIN,TOTAL 0.4 MG/DL (0.2-1.0); LIPASE 87 U/L (73-393); NT-PRO BNP 187 PG/ML (<125)
--- NOTE | 2021-02-04 08:42 | REP ---
INDICATION: CHEST PAIN. COMPARISON: PA and lateral chest, 06/11/2019. TECHNIQUE: Upright AP portable chest image was obtained. FINDINGS: The lungs are clear. The heart size is normal. There is calcific vascular disease of the thoracic aorta. The upper abdominal bowel gas pattern is normal. There are no significant bony abnormalities of the chest. IMPRESSION: No evidence of acute cardiopulmonary pathology. <Electronically signed by Sixto Willoughby > 02/04/21 0854
[2021-02-04 08:43] LABS: BLOOD UREA NITROGEN 24 MG/DL (7-18); CALCIUM LEVEL 8.9 MG/DL (8.5-10.1); CARBON DIOXIDE LEVEL 27 MEQ/L (21-32); CHLORIDE LEVEL 111 MEQ/L (98-107); CREATININE FOR GFR 0.73 MG/DL (0.55-1.30); GLOMERULAR FILTRATION RATE > 60.0 (>51); GLUCOSE, FASTING 157 MG/DL (70-100); POTASSIUM SERUM 3.7 MEQ/L (3.5-5.1); SODIUM LEVEL 145 MEQ/L (136-145)
[2021-02-04] MEDS ORDERED: ISOVUE-370 76% 100ML VIAL As Ordered ONE (08:45)
[2021-02-04] MEDS ORDERED: PANT40TA29 (09:01)
--- NOTE | 2021-02-04 09:24 | REP ---
INDICATION: CP. COMPARISON: None. TECHNIQUE: Imaging protocol: CT angiography of the chest with IV contrast. Contiguous 3 mm thick axial projection images were obtained through the chest. 2D sagittal and coronal reconstructions were performed. Radiation optimization: All CT scans at this facility use at least one of these dose optimization techniques: automated exposure control; mA and/or kV adjustment per patient size (includes targeted exams where dose is matched to clinical indication); or iterative reconstruction. CONTRAST: 75 cc Isovue 370, IV. FINDINGS: Lower neck: The thyroid gland is enlarged without nodules. There is no supraclavicular lymphadenopathy. Mediastinum: No abnormal masses or lymphadenopathy. Heart/thoracic aorta/pulmonary arterial tree: The heart size is upper limits of normal. There is no pericardial effusion. There is calcific vascular disease of the thoracic aorta and coronary arteries. There is no evidence of thoracic aortic aneurysm or aortic dissection. There are no filling defects in the pulmonary arterial tree. Upper abdomen: The spleen is enlarged measuring 14.0 cm in axial dimension. There is a calcified splenic granuloma. The gallbladder is surgically absent. There is calcific vascular disease of the abdominal aorta. Thoracic esophagus: Normal. Chest wall and axilla: The visualized breasts and soft tissues of the chest wall appear normal. There is no axillary lymphadenopathy. There are anterior osteophytes and lateral syndesmophytes throughout the thoracic spine consistent with diffuse idiopathic skeletal hyperostosis (DISH). Lung parenchyma: The lungs are clear. There are no pulmonary nodules or masses. There is no significant interstitial or alveolar lung disease. There are no pleural effusions. IMPRESSION: 1. No evidence of pulmonary emboli. 2. Calcific vascular disease of the thoracoabdominal aorta and coronary arteries. There is no evidence of thoracic aortic aneurysm or aortic dissection. 3. Mild splenomegaly. Other findings as noted. <Electronically signed by Sixto Willoughby > 02/04/21 [id number]
[2021-02-04 15:00] VITALS: BP 189/83
[2021-02-04] MEDS ORDERED: ASPI81TA26 PO (15:01)
--- NOTE | 2021-02-05 08:12 | ECGEPIP ---
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
--- NOTE | 2021-02-05 08:19 | ECGEPIP ---
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
--- NOTE | 2021-02-05 08:21 | ECGEPIP ---
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
== END 2021-02-04 15:17 | disposition home or self-care (01) ==
LOC: M ED 07:01
DX: R07.9 Chest pain, unspecified (principal); E11.9 Type 2 diabetes mellitus without complications; I10 Essential (primary) hypertension; E78.5 Hyperlipidemia, unspecified; K21.9 Gastro-esophageal reflux disease without esophagitis; R00.0 Tachycardia, unspecified; Z79.899 Other long term (current) drug therapy; Z79.82 Long term (current) use of aspirin; Z79.4 Long term (current) use of insulin; Z88.5 Allergy status to narcotic agent
CPT/HCPCS: 36415; 71045; 71275; 80048; 80076; 83690; 83880; 84443; 84484; 85025; 93005; 93041; 94760; 99285; Q9967

== ENCOUNTER → 2021-02-21 | Outpatient (CLI) | payer MEDICARE ==
[~2021-02-21] MED LIST changes: +ASPI81TA26 PO; +PANT40TA29
--- NOTE | 2021-02-21 15:34 | REP ---
INDICATION: RT HIP AND RT KNEE PAIN COMPARISON: None. TECHNIQUE: AP pelvis and AP/frog-lateral views of the right hip FINDINGS: Degenerative changes include increased sclerosis to the acetabular roof with mild joint space narrowing. Chronic calcifications adjacent to the greater tuberosity are noted and consistent with associated calcific tendinopathy. No evidence for acute or healed injury. IMPRESSION: Early arthritic changes to the right hip. <Electronically signed by Toney Miranda > 02/21/21 1816
--- NOTE | 2021-02-21 15:36 | REP ---
INDICATION: RT HIP AND RT KNEE PAIN. COMPARISON: None. TECHNIQUE: AP, lateral, sunrise views of the right knee FINDINGS: Patient is status post right knee replacement with normal appearance and positioning to the orthopedic components. The joint spaces appear normal. Patellofemoral joint space narrowing cannot be excluded. No acute fracture or dislocation. No obvious loosening to the metallic hardware. No definite effusion. IMPRESSION: Right knee replacement appears relatively appropriate. <Electronically signed by Toney Miranda > 02/21/21 [id number]
== END ==
LOC: M SOG 08:18
PROVIDERS: ATTEND Orthopaedic Surgery Adult Reconstructive Orthopaedic Surgery
DX: M16.11 Unilateral primary osteoarthritis, right hip (principal); M25.551 Pain in right hip; M25.561 Pain in right knee; Z96.651 Presence of right artificial knee joint

== ENCOUNTER → 2021-03-17 | Outpatient (CLI) | payer MEDICARE ==
[~2021-03-17] MED LIST changes: +ATOR40TA75 PO; +FAMO40TA3 PO; +LISI20TA20 PO; +TRUL10IN SC
== END ==
LOC: M LABSMTC 11:08
PROVIDERS: ATTEND Anesthesiology
DX: Z01.818 Encounter for other preprocedural examination (principal); Z11.52 Encounter for screening for COVID-19

== ENCOUNTER → 2021-03-20 | Outpatient (CLI) | payer MEDICARE ==
--- NOTE | 2021-03-20 10:52 | REP ---
INDICATION: THYROID NODULE. COMPARISON: 09/12/2017 TECHNIQUE: Real-time sonographic evaluation of the thyroid with Doppler FINDINGS: The right lobe of the thyroid gland measures 6.2 x 2.6 x 1.9 cm and the left lobe measures 5.7 x 1.4 x 1.9 cm. The isthmus measures 4 mm. Once again, there are numerous mm sized nodules. The largest 3 on the right have a maximal dimension of 7 mm. The largest 3 on the left are similar with only 1 having a maximal dimension of 7 mm while the other 2 have a maximal dimension of 5 mm. IMPRESSION: There has been no significant change compared to the prior exam. There is thyromegaly and tiny solid-appearing nodules. <Electronically signed by Igor Reagan > 03/20/21 1041
== END ==
LOC: M WHC 08:21
PROVIDERS: ATTEND Family Medicine
DX: E04.1 Nontoxic single thyroid nodule (principal)

== ENCOUNTER → 2021-03-24 | Outpatient (CLI) | payer MEDICARE ==
--- NOTE | 2021-03-24 12:46 | REP ---
INDICATION: RT KNEE PROSTHESIS ? LOOSENING OR INFECTION. COMPARISON: None. TECHNIQUE/RADIOTRACER AND DOSE: After the intravenous administration of 22.0 mCi of technetium 99 M MDP a triple phase bone scan of the knees was obtained. FINDINGS: The patient has a right knee prosthesis. The flow portion of the examination shows no abnormal increased or decreased radionuclide accumulation in either knee region. Blood pool imaging shows normally expected photopenia in the right knee. There is no abnormal activity. Delayed imaging again shows expected photopenia in the right knee. The activity seen in the right knee is within normal limits. There is no abnormal activity in either knee. IMPRESSION: No evidence of prosthetic loosening. <Electronically signed by Igor Reagan > 03/24/21 0105
== END ==
LOC: M RAD 07:55
PROVIDERS: ATTEND Orthopaedic Surgery Adult Reconstructive Orthopaedic Surgery
DX: Z96.651 Presence of right artificial knee joint (principal)
CPT/HCPCS: 78315; A9503

== ENCOUNTER → 2021-07-26 | Outpatient (CLI) | payer MEDICARE, MEDICAID ==
[~2021-07-26] MED LIST changes: -LISI20TA20 PO; +LISI20TA37 PO; +TIZA10TA PO; -TIZA4TAB4 PO
== END ==
LOC: M SOG 13:05
PROVIDERS: ATTEND Orthopaedic Surgery Adult Reconstructive Orthopaedic Surgery
DX: M25.562 Pain in left knee (principal)

== ENCOUNTER → 2021-11-23 | Outpatient (CLI) | payer MEDICARE ==
[2021-11-23 15:33] LABS: BASO % 0.4 % (0.0-1.0); EOS # 0.1 10^3/uL (0.0-0.5); EOS % 1.2 % (0.0-3.0); LYMPH # 2.6 10^3/uL (1.5-5.0); LYMPH % 25.1 % (24.0-44.0); MEAN CORPUSCULAR HEMOGLOBIN 31.1 pg (27.0-33.0); MEAN CORPUSCULAR HGB CONC 32.5 g/dl (32.0-36.5); MEAN CORPUSCULAR VOLUME 95.7 fl (80.0-96.0); MONO # 0.7 10^3/uL (0.0-0.8); MONO % 6.3 % (2.0-8.0); NEUTROPHILS % 66.4 % (36.0-66.0); PLATELET COUNT, AUTOMATED 268 10^3/uL (150-450); RED BLOOD COUNT 4.18 10^6/uL (4.00-5.40); WHITE BLOOD COUNT 10.5 10^3/uL (4.0-10.0)
[2021-11-23 15:45] LABS: HEMOGLOBIN A1c 7.1 %
[2021-11-23 16:11] LABS: ALBUMIN 3.4 GM/DL (3.2-5.2); BILIRUBIN,TOTAL 0.4 MG/DL (0.2-1.0); CALCIUM LEVEL 9.8 MG/DL (8.5-10.1); CHOLESTEROL RISK RATIO 5.571 (<5); CREATININE FOR GFR 1.07 MG/DL (0.55-1.30); GLOMERULAR FILTRATION RATE 55.9 (>51); POTASSIUM SERUM 4.2 MEQ/L (3.5-5.1); THYROID STIMULATING HORMONE 0.827 uIU/ML (0.358-3.740); TOTAL PROTEIN 6.6 GM/DL (6.4-8.2)
== END ==
LOC: M PLALAB 12:19
PROVIDERS: ATTEND Physician Assistant
DX: E11.42 Type 2 diabetes mellitus with diabetic polyneuropathy (principal); E04.1 Nontoxic single thyroid nodule

== ENCOUNTER → 2021-12-07 | Outpatient (CLI) | payer MEDICARE | LOC: M SOG 08:49 | PROVIDERS: ATTEND Orthopaedic Surgery | DX: Z47.89 Encounter for other orthopedic aftercare (principal) ==

== ENCOUNTER → 2021-12-19 | Outpatient (CLI) | payer MEDICARE | LOC: M PLAIMG 10:07 | PROVIDERS: ATTEND Orthopaedic Surgery | DX: M51.37 Other intervertebral disc degeneration, lumbosacral region (principal); M48.061 Spinal stenosis, lumbar region without neurogenic claudication; M51.26 Other intervertebral disc displacement, lumbar region; M51.27 Other intervertebral disc displacement, lumbosacral region; M48.07 Spinal stenosis, lumbosacral region ==

== ENCOUNTER → 2022-01-28 | Outpatient (CLI) | payer MEDICARE ==
[~2022-01-28] MED LIST changes: +TRAZ-252 PO
== END ==
LOC: M LABSMTC 10:52
PROVIDERS: ATTEND Anesthesiology
DX: Z01.812 Encounter for preprocedural laboratory examination (principal); Z20.822 Contact with and (suspected) exposure to COVID-19

== ENCOUNTER → 2022-01-29 | Outpatient (CLI) | payer MEDICARE | LOC: M SOG 08:11 | PROVIDERS: ATTEND Orthopaedic Surgery | DX: M50.30 Other cervical disc degeneration, unspecified cervical region (principal) ==

== ENCOUNTER 2022-02-01 07:10 | Day surgery (SDC) | payer MEDICARE ==
[~2022-02-01] VITALS: Ht 162.6 cm; Wt 99.8 kg
[~2022-02-01 07:10] MED LIST changes: +NS 1,000 ML IV ONE
[2022-02-01] MEDS ORDERED: LIDOCAINE 2% 100MG/5ML SDV (FOR ANES.) As Ordered ONE (08:13)
[2022-02-01] MEDS ORDERED: propofoL 200 MG/20 ML VIAL As Ordered ONE ×3 (08:13→08:42)
[2022-02-01 09:09] VITALS: BP 143/76
== END 2022-02-01 09:29 | disposition home or self-care (01) ==
LOC: M OPP 07:10
PROVIDERS: ATTEND Surgery
DX: Z12.11 Encounter for screening for malignant neoplasm of colon (principal); D12.4 Benign neoplasm of descending colon; K57.30 Diverticulosis of large intestine without perforation or abscess without bleeding; K57.10 Diverticulosis of small intestine without perforation or abscess without bleeding; Z79.02 Long term (current) use of antithrombotics/antiplatelets; Z79.4 Long term (current) use of insulin; Z79.899 Other long term (current) drug therapy; E11.9 Type 2 diabetes mellitus without complications; K21.9 Gastro-esophageal reflux disease without esophagitis; F32.9 Major depressive disorder, single episode, unspecified; F41.9 Anxiety disorder, unspecified; E78.00 Pure hypercholesterolemia, unspecified

== ENCOUNTER → 2022-02-21 | Outpatient (CLI) | payer MEDICARE ==
[~2022-02-21] MED LIST changes: -NS 1,000 ML IV ONE
== END ==
LOC: M RAD 10:51
PROVIDERS: ATTEND Orthopaedic Surgery
DX: M47.812 Spondylosis without myelopathy or radiculopathy, cervical region (principal)

== ENCOUNTER → 2022-03-07 | Outpatient (CLI) | payer MEDICARE | LOC: M SOG 08:31 | PROVIDERS: ATTEND Orthopaedic Surgery Hand Surgery | DX: M19.032 Primary osteoarthritis, left wrist (principal); M79.641 Pain in right hand ==

== ENCOUNTER → 2022-08-14 | Outpatient (CLI) | payer MEDICARE | LOC: M PLAIMG 14:42 | PROVIDERS: ATTEND Physician Assistant | DX: R05.3 Chronic cough (principal) ==

== ENCOUNTER → 2022-09-13 | Outpatient (CLI) | payer MEDICARE, MEDICAID | LOC: M WHC 11:34 | PROVIDERS: ATTEND Physician Assistant | DX: R05.3 Chronic cough (principal); E01.0 Iodine-deficiency related diffuse (endemic) goiter ==

== ENCOUNTER → 2022-10-26 | Outpatient (CLI) | payer MEDICARE, MEDICAID ==
[2022-10-26 10:29] LABS: BASO % 0.3 % (0.0-1.0); EOS # 0.2 10^3/uL (0.0-0.5); EOS % 1.3 % (0.0-3.0); LYMPH # 2.6 10^3/uL (1.5-5.0); LYMPH % 21.8 % (24.0-44.0); MEAN CORPUSCULAR HGB CONC 33.3 g/dl (32.0-36.5); MEAN CORPUSCULAR VOLUME 92.9 fl (80.0-96.0); MONO # 0.8 10^3/uL (0.0-0.8); MONO % 6.3 % (2.0-8.0); NEUTROPHILS # 8.3 10^3/uL (1.5-8.5); NEUTROPHILS % 68.6 % (36.0-66.0); PLATELET COUNT, AUTOMATED 268 10^3/uL (150-450); WHITE BLOOD COUNT 12.1 10^3/uL (4.0-10.0)
[2022-10-26 10:44] LABS: HEMOGLOBIN A1c 7.6 % (4.0-6.0)
[2022-10-26 10:54] LABS: THYROID STIMULATING HORMONE 1.676 uIU/ML (0.55-4.78)
[2022-10-26 10:57] LABS: ALBUMIN 3.4 G/DL (3.2-5.2); ALKALINE PHOSPHATASE 117 U/L (46-116); ALT/SGPT 20 U/L (7.0-40); AST/SGOT 10 U/L (<34); BILIRUBIN,TOTAL 0.4 MG/DL (0.3-1.2); BLOOD UREA NITROGEN 22 MG/DL (9-23); CALCIUM LEVEL 9.4 MG/DL (8.3-10.6); CARBON DIOXIDE LEVEL 29 MMOL/L (20-31); CHLORIDE LEVEL 102 MMOL/L (98-107); CHOLESTEROL LEVEL 225 MG/DL (<200); CHOLESTEROL RISK RATIO 6.13 (<5); CREATININE FOR GFR 0.81 MG/DL (0.55-1.30); GLOMERULAR FILTRATION RATE > 60.0 (>45); GLUCOSE, FASTING 151 MG/DL (74-106); HDL CHOLESTEROL 36.7 MG/DL (>40); LDL CHOLESTEROL 114.3 MG/DL (<100); NON-HDL-C 188.3 MG/DL; SODIUM LEVEL 137 MMOL/L (136-145); TOTAL PROTEIN 6.2 G/DL (5.7-8.2); TRIGLYCERIDES LEVEL 370 MG/DL (<150)
== END ==
LOC: M PLALAB 09:01
PROVIDERS: ATTEND Physician Assistant
DX: E11.42 Type 2 diabetes mellitus with diabetic polyneuropathy (principal); E04.1 Nontoxic single thyroid nodule

== ENCOUNTER → 2023-08-01 | Outpatient (CLI) | payer MEDICARE, MEDICAID ==
[2023-08-01 09:53] LABS: BASO # 0.1 10^3/uL (0.0-0.2); BASO % 0.6 % (0.0-1.0); EOS # 0.2 10^3/uL (0.0-0.5); EOS % 1.6 % (0.0-3.0); HEMATOCRIT 40.7 % (36.0-47.0); HEMOGLOBIN 13.6 g/dl (12.0-15.5); LYMPH # 2.9 10^3/uL (1.5-5.0); LYMPH % 26.5 % (24.0-44.0); MEAN CORPUSCULAR HEMOGLOBIN 31.3 pg (27.0-33.0); MEAN CORPUSCULAR HGB CONC 33.4 g/dl (32.0-36.5); MEAN CORPUSCULAR VOLUME 93.6 fl (80.0-96.0); MONO # 0.6 10^3/uL (0.0-0.8); MONO % 5.8 % (2.0-8.0); NEUTROPHILS # 7.1 10^3/uL (1.5-8.5); NEUTROPHILS % 65.1 % (36.0-66.0); PLATELET COUNT, AUTOMATED 256 10^3/uL (150-450); RED BLOOD COUNT 4.35 10^6/uL (4.00-5.40); WHITE BLOOD COUNT 10.9 10^3/uL (4.0-10.0)
[2023-08-01 10:28] LABS: BLOOD UREA NITROGEN 28 MG/DL (9-23); CALCIUM LEVEL 9.5 MG/DL (8.3-10.6); CARBON DIOXIDE LEVEL 28 MMOL/L (20-31); CHLORIDE LEVEL 106 MMOL/L (98-107); CREATININE FOR GFR 0.94 MG/DL (0.55-1.30); GLOMERULAR FILTRATION RATE > 60.0 (>45); GLUCOSE, FASTING 145 MG/DL (74-106); POTASSIUM SERUM 4.2 MMOL/L (3.5-5.1); SODIUM LEVEL 140 MMOL/L (136-145)
== END ==
LOC: M EKG 08:55
PROVIDERS: ATTEND Urology
DX: T84.223A Displacement of internal fixation device of bones of foot and toes, initial encounter (principal); M79.671 Pain in right foot

== ENCOUNTER 2023-08-09 11:25 | Day surgery (SDC) | payer MEDICARE, MEDICAID ==
[~2023-08-09] VITALS: Ht 165.1 cm; Wt 101.0 kg
[2023-08-09] MEDS ORDERED: GLUCOSE 4GM CHEW TABLET PO PRN (12:35)
[2023-08-09] MEDS ORDERED: GLUCAGON INJ 1MG VIAL SC PRN (12:35)
[2023-08-09] MEDS ORDERED: DEXTROSE 50% 50ML SYRINGE IV PRN (12:35)
[2023-08-09] MEDS: LR 1,000 ML IV SCH (12:44)
[2023-08-09] MEDS: INSULIN LISPRO (NovoLOG) PER UNIT SC PRN (12:44)
[2023-08-09] MEDS ORDERED: KETOROLAC 60MG 2ML VIAL As Ordered ONE (13:09)
[2023-08-09] MEDS ORDERED: propofoL 200 MG/20 ML VIAL As Ordered ONE (13:09)
[2023-08-09] MEDS ORDERED: ONDANSETRON 4MG 2ML VIAL As Ordered ONE (13:09)
[2023-08-09] MEDS ORDERED: LIDOCAINE 2% 100MG/5ML SDV (FOR ANES.) As Ordered ONE (13:09)
[2023-08-09] MEDS ORDERED: fentaNYL 100 MCG/2 ML INJECTION As Ordered ONE (13:12)
[2023-08-09] MEDS ORDERED: MIDAZOLAM INJ 2MG/2ML VIAL As Ordered ONE (13:12)
[2023-08-09] MEDS: ceFAZolin SOD 2 GM in IV 1 EA IV ONE (16:56)
[2023-08-09] MEDS: LIDOCAINE 2% MDV 20ML VIAL As Ordered ONE (16:59)
[2023-08-09] MEDS: GENTAMICIN SULF 80MG/2ML VIAL As Ordered ONE (16:59)
[2023-08-09 18:04] VITALS: BP 109/57; TEMP 98.1; O2SAT 100
== END 2023-08-09 18:24 | disposition home or self-care (01) ==
LOC: M SDC 11:25
PROVIDERS: ATTEND Podiatrist
DX: T84.84XA Pain due to internal orthopedic prosthetic devices, implants and grafts, initial encounter (principal); Y79.2 Prosthetic and other implants, materials and accessory orthopedic devices associated with adverse incidents; E11.9 Type 2 diabetes mellitus without complications; I10 Essential (primary) hypertension; E78.00 Pure hypercholesterolemia, unspecified; Z79.899 Other long term (current) drug therapy; Z79.84 Long term (current) use of oral hypoglycemic drugs; Z79.85 Long-term (current) use of injectable non-insulin antidiabetic drugs; Z88.5 Allergy status to narcotic agent
CPT/HCPCS: 20680; J0665; J0690; J1100; J1580; J1815; J1885; J2250; J2405; J3010

== ENCOUNTER → 2023-10-22 | Outpatient (CLI) | payer MEDICARE, MEDICAID | LOC: M SOG 07:51 | PROVIDERS: ATTEND Orthopaedic Surgery | DX: M25.552 Pain in left hip (principal); M16.0 Bilateral primary osteoarthritis of hip ==

== ENCOUNTER → 2024-07-13 | Outpatient (CLI) | payer MEDICARE, MEDICAID ==
[2024-07-13 18:18] LABS: ALBUMIN 3.5 G/DL (3.2-5.2); ALKALINE PHOSPHATASE 121 U/L (35-104); ALT/SGPT 14 U/L (7.0-40); AST/SGOT 15 U/L (<34); BILIRUBIN,TOTAL 0.4 MG/DL (0.3-1.2); BLOOD UREA NITROGEN 26 MG/DL (9-23); CALCIUM LEVEL 9.9 MG/DL (8.3-10.6); CARBON DIOXIDE LEVEL 30 MMOL/L (20-31); CHLORIDE LEVEL 104 MMOL/L (98-107); CHOLESTEROL LEVEL 249 MG/DL (<200); CREATININE FOR GFR 0.96 MG/DL (0.55-1.30); GLOMERULAR FILTRATION RATE > 60.0 (>45); GLUCOSE, FASTING 142 MG/DL (74-106); HDL CHOLESTEROL 44.4 MG/DL (>40); LDL CHOLESTEROL 164.4 MG/DL (<100); NON-HDL-C 204.6 MG/DL; POTASSIUM SERUM 4.4 MMOL/L (3.5-5.1); SODIUM LEVEL 140 MMOL/L (136-145); TRIGLYCERIDES LEVEL 201 MG/DL (<150)
[2024-07-13 18:19] LABS: THYROID STIMULATING HORMONE 1.282 uIU/ML (0.55-4.78)
[2024-07-13 18:20] LABS: FREE T4 1.15 NG/DL (0.89-1.76); TOTAL 25(OH) VITAMIN D 13.8 NG/ML (20.0-100.0)
[2024-07-13 18:51] LABS: HEMOGLOBIN A1c 7.8 % (4.0-6.0)
== END ==
LOC: M PLALAB 15:39
PROVIDERS: ATTEND Nurse Practitioner Family
DX: I10 Essential (primary) hypertension (principal); E78.5 Hyperlipidemia, unspecified; E11.42 Type 2 diabetes mellitus with diabetic polyneuropathy; E04.1 Nontoxic single thyroid nodule; E55.9 Vitamin D deficiency, unspecified

== ENCOUNTER → 2024-07-27 | Outpatient (CLI) | payer MEDICARE, MEDICAID ==
[2024-07-27 09:37] LABS: BLOOD UREA NITROGEN 25 MG/DL (9-23); CALCIUM LEVEL 9.6 MG/DL (8.3-10.6); CARBON DIOXIDE LEVEL 28 MMOL/L (20-31); CHLORIDE LEVEL 106 MMOL/L (98-107); CREATININE FOR GFR 0.87 MG/DL (0.55-1.30); GLOMERULAR FILTRATION RATE > 60.0 (>45); GLUCOSE, FASTING 126 MG/DL (74-106); POTASSIUM SERUM 4.2 MMOL/L (3.5-5.1); SODIUM LEVEL 142 MMOL/L (136-145)
== END ==
LOC: M LAB 08:40
PROVIDERS: ATTEND Nurse Practitioner Family
DX: I10 Essential (primary) hypertension (principal)

== ENCOUNTER → 2024-07-29 | Outpatient (CLI) | payer MEDICARE, MEDICAID ==
[~2024-07-29] MED LIST changes: +ISOVUE-370 76% 100ML VIAL As Ordered ONE
== END ==
LOC: M RAD 17:19
PROVIDERS: ATTEND Nurse Practitioner Family
DX: D35.02 Benign neoplasm of left adrenal gland (principal); R11.10 Vomiting, unspecified; R10.10 Upper abdominal pain, unspecified
CPT/HCPCS: 74170; Q9967

== ENCOUNTER → 2024-08-07 | Outpatient (CLI) | payer MEDICARE, MEDICAID ==
[~2024-08-07] MED LIST changes: +E-Z-GAS II EFFERVESCENT PACKET (SODIUM BICARB./CITRIC ACID/SIMETHICONE) As Ordered ONE; +E-Z-HD 98% w/w 340GM SUSP BTL As Ordered ONE; +E-Z-PAQUE 96% w/w SUSP 176GM BTL As Ordered ONE; -ISOVUE-370 76% 100ML VIAL As Ordered ONE
== END ==
LOC: M RAD 08:27
PROVIDERS: ATTEND Nurse Practitioner Family
DX: K21.9 Gastro-esophageal reflux disease without esophagitis (principal); E04.2 Nontoxic multinodular goiter

== ENCOUNTER → 2024-09-10 | Outpatient (CLI) | payer MEDICARE, MEDICAID ==
[~2024-09-10] MED LIST changes: -E-Z-GAS II EFFERVESCENT PACKET (SODIUM BICARB./CITRIC ACID/SIMETHICONE) As Ordered ONE; -E-Z-HD 98% w/w 340GM SUSP BTL As Ordered ONE; -E-Z-PAQUE 96% w/w SUSP 176GM BTL As Ordered ONE
== END ==
LOC: M WHC 07:32
PROVIDERS: ATTEND Nurse Practitioner Family
DX: Z12.31 Encounter for screening mammogram for malignant neoplasm of breast (principal); R92.313 Mammographic fatty tissue density, bilateral breasts

== ENCOUNTER → 2024-09-30 | Outpatient (CLI) | payer MEDICARE, MEDICAID | LOC: M RAD 13:08 | PROVIDERS: ATTEND Nurse Practitioner Family | DX: I65.22 Occlusion and stenosis of left carotid artery (principal) ==

== ENCOUNTER 2025-01-16 19:31 | Emergency (ER) | payer MEDICARE, MEDICAID ==
[~2025-01-16] VITALS: Ht 165.1 cm; Wt 104.7 kg
[~2025-01-16 19:31] MED LIST changes: +LISI40TA10 PO; -LISI40TA4 PO; -PROZ20CA11 PO; +PROZ20CA12 PO
[2025-01-16 20:06] LABS: BASO # 0.1 10^3/uL (0.0-0.2); BASO % 0.3 % (0.0-1.0); EOS # 0.2 10^3/uL (0.0-0.5); EOS % 1.2 % (0.0-3.0); LYMPH # 4.6 10^3/uL (1.5-5.0); LYMPH % 27.3 % (24.0-44.0); MONO # 0.9 10^3/uL (0.0-0.8); MONO % 5.5 % (2.0-8.0); NEUTROPHILS # 11.0 10^3/uL (1.5-8.5); NEUTROPHILS % 64.9 % (36.0-66.0); PLATELET COUNT, AUTOMATED 331 10^3/uL (150-450)
[2025-01-16] MEDS: ONDANSETRON 4MG 2ML VIAL IV ONE (20:08)
[2025-01-16] MEDS: HYDROMORPHONE HCL 0.5 MG/0.5 ML SYRINGE IV PRN (20:08)
[2025-01-16 20:20] LABS: INR 0.81
[2025-01-16 20:29] LABS: CK-MB VALUE MASS 4.0 NG/ML (<3.6)
[2025-01-16 20:31] LABS: CPK CREATINE PHOSPHOKINASE 85 U/L (34-145); MB/CK RELATIVE INDEX 4.70 (< OR =4)
[2025-01-16 20:36] LABS: CALCIUM LEVEL 9.6 MG/DL (8.3-10.6); CARBON DIOXIDE LEVEL 29 MMOL/L (20-31); CHLORIDE LEVEL 101 MMOL/L (98-107); CREATININE FOR GFR 1.02 MG/DL (0.55-1.30); GLOMERULAR FILTRATION RATE 62.2 (>45); POTASSIUM SERUM 3.9 MMOL/L (3.5-5.1); SODIUM LEVEL 141 MMOL/L (136-145)
[2025-01-16] MEDS ORDERED: ISOVUE-370 76% 100 ML VIAL As Ordered ONE (20:40)
[2025-01-16] MEDS ORDERED: ASPI81CH33 PO (21:45)
[2025-01-16] MEDS ORDERED: HYDR-3490 PO (21:45)
[2025-01-16] MEDS ORDERED: ERGO500029 PO (21:45)
[2025-01-16] MEDS ORDERED: QUET50TA4 PO (21:45)
[2025-01-16] MEDS ORDERED: ATOR40TA75 PO (21:45)
[2025-01-16] MEDS ORDERED: QUET300T2 PO (21:45)
[2025-01-16] MEDS ORDERED: HOME MED LIST COMPLETE! XX SCH (21:50)
[2025-01-16 22:42] LABS: C REACTIVE PROTEIN QUANTITATIV < 0.50 MG/DL (<1.0)
[2025-01-17] MEDS ORDERED: AUGM500T34 PO (00:29)
[2025-01-17] MEDS ORDERED: PERC5TAB12 PO (00:29)
[2025-01-17 01:00] VITALS: BP 141/67; TEMP 98.1; O2SAT 96
[2025-01-17] MEDS: OXYCODONE/APAP 5MG/325MG(HOME DOSE PACK) PO ONE (01:01)
== END 2025-01-17 01:10 | disposition home or self-care (01) ==
LOC: M ED 19:31
DX: L76.34 Postprocedural seroma of skin and subcutaneous tissue following other procedure (principal); R00.0 Tachycardia, unspecified; E11.9 Type 2 diabetes mellitus without complications; I10 Essential (primary) hypertension; E78.5 Hyperlipidemia, unspecified; F60.3 Borderline personality disorder; F31.9 Bipolar disorder, unspecified; Z88.5 Allergy status to narcotic agent; Z88.8 Allergy status to other drugs, medicaments and biological substances; Z79.1 Long term (current) use of non-steroidal anti-inflammatories (NSAID); Z79.2 Long term (current) use of antibiotics; Z79.4 Long term (current) use of insulin; Z79.84 Long term (current) use of oral hypoglycemic drugs; Z79.899 Other long term (current) drug therapy
CPT/HCPCS: 71275; 73206; 80048; 82550; 82553; 83605; 84145; 84484; 85025; 85610; 85730; 86140; 93005; 93041; 93971; 94760; 96374; 99285; J1171; J2405; Q9967

== ENCOUNTER → 2025-02-05 | Outpatient (CLI) | payer MEDICARE, MEDICAID ==
[~2025-02-05] MED LIST changes: +ASPI81CH33 PO; +AUGM500T34 PO; +ERGO500029 PO; +ISOVUE-370 76% 100 ML VIAL As Ordered ONE; +QUET300T2 PO; +QUET50TA4 PO
== END ==
LOC: M RAD 09:47
PROVIDERS: ATTEND Surgery Vascular Surgery
DX: T82.898A Other specified complication of vascular prosthetic devices, implants and grafts, initial encounter (principal); Z48.812 Encounter for surgical aftercare following surgery on the circulatory system; Y83.1 Surgical operation with implant of artificial internal device as the cause of abnormal reaction of the patient, or of later complication, without mention of misadventure at the time of the procedure
CPT/HCPCS: 71275; Q9967

== ENCOUNTER 2025-04-06 13:39 | Emergency (ER) | payer MEDICARE, MEDICAID ==
[~2025-04-06] VITALS: Ht 165.1 cm; Wt 97.0 kg
[~2025-04-06 13:39] MED LIST changes: -ISOVUE-370 76% 100 ML VIAL As Ordered ONE; -PROZ20CA12 PO; +PROZ20CA25 PO
[2025-04-06] MEDS: NS 500 ML IV ONE ×2 (15:56→17:49)
[2025-04-06] MEDS ORDERED: ISOVUE-370 76% 100 ML VIAL As Ordered ONE (16:15)
[2025-04-06 16:17] LABS: BASO # 0.0 10^3/uL (0.0-0.2); BASO % 0.2 % (0.0-1.0); EOS # 0.1 10^3/uL (0.0-0.5); EOS % 0.4 % (0.0-3.0); LYMPH # 2.2 10^3/uL (1.5-5.0); LYMPH % 12.3 % (24.0-44.0); MONO # 0.9 10^3/uL (0.0-0.8); MONO % 5.2 % (2.0-8.0); NEUTROPHILS # 14.6 10^3/uL (1.5-8.5); NEUTROPHILS % 81.3 % (36.0-66.0); PLATELET COUNT, AUTOMATED 323 10^3/uL (150-450)
[2025-04-06 16:54] LABS: ALT/SGPT 42.0 U/L (7.0-40); AST/SGOT 59.0 U/L (<34); CALCIUM LEVEL 9.0 MG/DL (8.3-10.6); CARBON DIOXIDE LEVEL 32.0 MMOL/L (20-31); CHLORIDE LEVEL 95.0 MMOL/L (98-107); CK-MB VALUE MASS 2.1 NG/ML (<3.6); CPK CREATINE PHOSPHOKINASE 171.0 U/L (34-145); CREATININE FOR GFR 1.07 MG/DL (0.55-1.30); GLOMERULAR FILTRATION RATE 58.7 (>45); MB/CK RELATIVE INDEX 1.22 (< OR =4); POTASSIUM SERUM 4.1 MMOL/L (3.5-5.1); SODIUM LEVEL 139.0 MMOL/L (136-145)
[2025-04-06 17:00] LABS: INR 0.85
[2025-04-06 17:48] LABS: KETONE, URINE AUTO RFX NEGATIVE (NEGATIVE); LEUKOCYTE ESTERASE UR AUTO RFX NEGATIVE (NEGATIVE); NITRITE, URINE AUTO RFX NEGATIVE (NEGATIVE); RBC, URINE AUTO RFX 1 /HPF (0-3); SQUAM EPITHELIAL CELL UR AURFX 0 /HPF (0-6); WBC, URINE AUTO RFX 1 /HPF (0-3)
[2025-04-06] MEDS: PANTOPRAZOLE 40MG VIAL IV ONE (17:49)
[2025-04-06 18:17] LABS: CK-MB VALUE MASS 1.6 NG/ML (<3.6)
[2025-04-06 18:20] LABS: CPK CREATINE PHOSPHOKINASE 154.0 U/L (34-145); MB/CK RELATIVE INDEX 1.03 (< OR =4)
[2025-04-06] MEDS ORDERED: ONDA-282 PO (19:06)
[2025-04-06] MEDS ORDERED: PROT1TAB2 PO (19:06)
[2025-04-06 19:10] VITALS: BP 138/110; TEMP 98.7; O2SAT 94
== END 2025-04-06 19:16 | disposition home or self-care (01) ==
LOC: M ED 13:39
DX: K29.00 Acute gastritis without bleeding (principal); R11.2 Nausea with vomiting, unspecified; D35.02 Benign neoplasm of left adrenal gland; E11.9 Type 2 diabetes mellitus without complications; I10 Essential (primary) hypertension; E78.5 Hyperlipidemia, unspecified; F41.9 Anxiety disorder, unspecified; F32.A Depression, unspecified; Z88.5 Allergy status to narcotic agent; Z88.8 Allergy status to other drugs, medicaments and biological substances; Z79.1 Long term (current) use of non-steroidal anti-inflammatories (NSAID); Z79.2 Long term (current) use of antibiotics; Z79.899 Other long term (current) drug therapy; Z79.84 Long term (current) use of oral hypoglycemic drugs; Z79.4 Long term (current) use of insulin
CPT/HCPCS: 71045; 74177; 80047; 80048; 80076; 81001; 82550; 82553; 83605; 83690; 84484; 85025; 85610; 85730; 93005; 93041; 96361; 96374; 96375; 99285; J2470; J2765; Q9967

== ENCOUNTER → 2025-04-22 | Outpatient (CLI) | payer MEDICARE, MEDICAID ==
[~2025-04-22] MED LIST changes: +ONDA-282 PO; +PROT1TAB2 PO
== END ==
LOC: M PLARAD 12:34
PROVIDERS: ATTEND Surgery Vascular Surgery
DX: M79.601 Pain in right arm (principal); M48.02 Spinal stenosis, cervical region; M50.221 Other cervical disc displacement at C4-C5 level